=== PATIENT | male | born 1935 | race Caucasian/White ===

== ENCOUNTER 2017-07-03 17:35 | Observation (INO) | payer MEDICARE ==
[2017-07-03] MEDS ORDERED: Sodium Chloride 0.9% 1000 ML 1,000 ML IV SCH ×2 (19:00→21:15)
[2017-07-03] MEDS ORDERED: Vancomycin 1GM/ Ns 250ML*** 1 GM/250 ML IVPB IV ONE (19:06)
[2017-07-03 19:10] LABS: BASOPHIL % 0.4 % (0.0-0.4); Basophil (Absolute #) 0.02 (0-0.4); Eosinophil % 0.6 % (0.00-5.0); Eosinophil (Absolute #) 0.03 (0-0.5); Granulocyte Absolute (ANC) 3.46 (1.4-6.9); Granulocytes % 74.2 % (36.0-66.0); Hematocrit 28.1 % (42-50); Hemoglobin 8.7 gm/dl (12.5-18.0); Lymphocyte (Absolute #) 0.79 (1.0-4.6); Lymphocytes % 16.9 % (24.0-44.0); Mean Cell Volume 88.4 fl (78-100); Monocyte (Absolute #) 0.37 (0.0-1.3); Monocytes % 7.9 % (0.0-12.0); Platelet Count 350 K/mm3 (150-450); Red Blood Count 3.18 M/mm3 (4.1-5.6); Red Cell Distribution Width 13.9 % (11.5-14.0); White Blood Count 4.7 K/mm3 (4.0-10.5)
[2017-07-03] MEDS ORDERED: Vancomycin 1GM/ Ns 250ML*** 250 ML IV ONE (19:13)
[2017-07-03 19:20] LABS: ALBUMIN 3.4 g/dL (3.4-5.0); ANION GAP 9.7 MEQ/L (5-15); BILIRUBIN,TOTAL 0.2 mg/dL (0.2-1.0); Calcium 8.9 mg/dL (8.5-10.1); Carbon Dioxide 31.3 mEq/L (21-32); Creatinine 1 1.73 mg/dl (0.55-1.30); Mean Corpuscular Hemoglobin 27.3 pg (26-32); Potassium 4.1 mEq/L (3.5-5.1)
[2017-07-03 19:26] LABS: INR 1.03 (0.8-3.0)
[2017-07-03] MEDS ORDERED: Sodium Chloride 0.9% 1000 ML 1,000 ML ONE (19:42)
[2017-07-03] MEDS ORDERED: Adacel Vial IM ONE ×2 (20:34→20:46)
--- NOTE | 2017-07-03 20:42 | ERPHSYRPT ---
- History of Present Illness Time Seen by Provider: 07/03/17 18:50 Source: patient, family Exam Limitations: clinical condition Patient Subjective Stated Complaint: Pt states "My legs have been getting worse for the past 3 weeks." Triage Nursing Assessment: Pt alert and oriented X 3, skin pwd. Pt ambulates with much assistance. Pt legs have +2 pitting edema, left leg worse than right. Physician History: PATIENT WITH A HISTORY OF DEPENDENT EDEMA IN LOWER LEGS COMPLAIN OF LEFT LEG SWELLING X 3 WEEKS, ASSOCIATED WITH REDNESS. DENIES FEVER OR CHILLS. PATIENT COMPLAINS OF PAIN IN LEFT FINN AND CALF. DENIES CHEST PAIN OR DYSPNEA. Method of Injury: other (DENIES TRAUMA OR INJURY) Occurred: days ago Quality: constant, throbbing Severity of Pain-Max: moderate Severity of Pain-Current: moderate Lower Extremities Pain: leg: left Modifying Factors: Improves With: movement Associated Symptoms: other (PAIN UPON WEIGHT BEARING ) Allergies/Adverse Reactions: No Known Drug Allergies Allergy (Unverified 07/30/14 03:47) Home Medications: Furosemide [Lasix] 40 mg PO BID 07/03/17 [History] Sulfamethoxazole/Trimethoprim [Bactrim 400-80 mg Tablet] 1 each PO DAILY [History] Hx Tetanus, Diphtheria Vaccination/Date Given: Yes Hx Influenza Vaccination/Date Given: Yes Hx Pneumococcal Vaccination/Date Given: No Immunizations Up to Date: Yes - Review of Systems Constitutional: No Fever, No Chills Eyes: No Symptoms Ears, Nose, & Throat: No Symptoms Respiratory: No Cough, No Dyspnea Cardiac: No Symptoms, No Chest Pain, No Edema, No Syncope Abdominal/Gastrointestinal: No Symptoms, No Abdominal Pain, No Nausea, No Vomiting, No Diarrhea Genitourinary Symptoms: No Symptoms, No Dysuria Musculoskeletal: Other (LEG SWELLING), No Back Pain, No Neck Pain Skin: No Rash Neurological: No Dizziness, No Focal Weakness, No Sensory Changes Psychological: No Symptoms Endocrine: No Symptoms All Other Systems: Reviewed and Negative - Past Medical History Pertinent Past Medical History: Yes Neurological History: No Pertinent History ENT History: No Pertinent History Cardiac History: Hypertension Endocrine Medical History: Diabetes Type II Musculoskeletal History: No Pertinent History GI Medical History: No Pertinent History History: No Pertinent History Psycho-Social History: No Pertinent History Male Reproductive Disorders: No Pertinent History - Past Surgical History Past Surgical History: No - Social History Smoking Status: Never smoker Exposure to second hand smoke: Yes Drug Use: none Patient Lives Alone: Yes - Nursing Vital Signs Nursing Vital Signs: Initial Vital Signs Temperature 98.5 F 07/03/17 18:36 Pulse Rate 92 H 07/03/17 18:36 Respiratory Rate 18 07/03/17 18:36 Blood Pressure 142/75 07/03/17 18:36 O2 Sat by Pulse Oximetry 100 07/03/17 18:36 Pain Scale Pain Intensity 2 - Physical Exam General Appearance: alert Eyes, Ears, Nose, Throat Exam: moist mucous membranes Neck Exam: non-tender, supple Cardiovascular/Respiratory Exam: chest non-tender, normal breath sounds, regular rate/rhythm, no respiratory distress Gastrointestinal/Abdominal Exam: non-tender, guarding Back Exam: normal inspection, No vertebral tenderness Hips Exam: bilateral: soft tissue tenderness (ERYTHRMA AND WARMTH LEFT FINN AND CALF) Legs Exam: left leg: bone tenderness, bilateral leg: swelling (CIRCUMFERENCE RIGHT LEG 41CM, LEFT LEG 44CM) Foot Exam: bilateral foot: other (PEDIS PULSES 2+) Neuro/Tendon Exam: normal sensation, normal motor functions Mental Status Exam: alert, oriented x 3, cooperative Skin Exam: normal color, warm, dry SpO2 Interpretation: normal SpO2: 98 Oxygen Delivery: Room Air - Course EKG Interpreted by Me: RATE, Sinus Rhythm, NORMAL AXIS, Non-specific ST Changes - Radiology Exams Chest X-ray Interpretation: Interpreted by me (COPD, FLAT DIAHRAMS, NO INFILTRATES) - Radiology Ultrasound Exam Left Venous Lower Extremity Ultrasound: discussed w/radiologist (NO EVIDENCE OF DVT) Ordered Tests: Active Orders 24 hr Category Date Time Status EKG-ER Only STAT Care 07/03/17 19:05 Active IV Insertion STAT Care 07/03/17 18:57 Active CHEST 1 VIEW (PORTABLE) Stat Exams 07/03/17 19:05 Taken VENOUS BILATERAL EXTREMITY [US] Stat Exams 07/03/17 20:02 Taken BLOOD CULTURE Stat Lab 07/03/17 19:35 Received CBC W DIFF Stat Lab 07/03/17 19:00 Completed CMP Stat Lab 07/03/17 19:00 Completed MAGNESIUM Stat Lab 07/03/17 19:05 Completed PT INR [PROTIME WITH INR] Stat Lab 07/03/17 19:00 Completed TROPONIN Q3H Lab 07/03/17 19:15 Completed TROPONIN Q3H Lab 07/03/17 22:15 Ordered TROPONIN Q3H Lab 07/04/17 01:15 Ordered TROPONIN Q3H Lab 07/04/17 04:15 Ordered TROPONIN Q3H Lab 07/04/17 07:15 Ordered Medication Summary Generic Name Dose Route Start Last Admin Trade Name Freq PRN Reason Stop Dose Admin Sodium Chloride 1,000 mls @ 50 mls/hr 07/03/17 19:00 07/03/17 19:45 Sodium Chloride 0.9% 1000 Ml IV 08/02/17 18:59 50 mls/hr .Q20H DONNA Administration Discontinued Medications Generic Name Dose Route Start Last Admin Trade Name Freq PRN Reason Stop Dose Admin Diphtheria/Tetanus/Acell Pertussis 0.5 ml 07/03/17 20:34 07/03/17 20:49 Adacel Vial IM 07/03/17 20:35 0.5 ml .ONCE ONE Administration Diphtheria/Tetanus/Acell Pertussis Confirm 07/03/17 20:46 Adacel Vial Administered 07/03/17 20:47 Dose 0.5 ml IM .STK-MED ONE Vancomycin HCl 1 gm in 250 mls @ 167 mls/hr 07/03/17 19:06 07/03/17 19:45 Vancomycin 1gm/ Ns 250ml IV 07/03/17 20:35 167 mls/hr STAT ONE Administration Vancomycin HCl Confirm 07/03/17 19:13 Vancomycin 1gm/ Ns 250ml Administered 07/03/17 19:14 Dose 250 mls @ ud IV .STK-MED ONE Lab/Rad Data: Laboratory Result Diagrams 07/03/17 19:00 07/03/17 19:00 Laboratory Results 07/03/17 07/03/17 07/03/17 Range/Units 19:15 19:05 19:00 WBC (4.0-10.5) K/mm3 RBC (4.1-5.6) M/mm3 Hgb (12.5-18.0) gm/dl Hct (42-50) % MCV (78-100) fl MCH (26-32) pg MCHC (32-36) g/dl RDW (11.5-14.0) % Plt Count (150-450) K/mm3 MPV (6-9.5) fl Gran % (36.0-66.0) % Lymphocytes % (24.0-44.0) % Monocytes % (0.0-12.0) % Eosinophils % (0.00-5.0) % Basophils % (0.0-0.4) % Basophils # (0-0.4) INR 1.03 (0.8-3.0) Sodium (136-145) mEq/L Potassium (3.5-5.1) mEq/L Chloride (98-107) mEq/L Carbon Dioxide (21-32) mEq/L Anion Gap (5-15) MEQ/L BUN (9-20) mg/dL Creatinine (0.55-1.30) mg/dl Estimated GFR ML/MIN Glucose (70-110) MG/DL Calcium (8.5-10.1) mg/dL Magnesium 2.1 (1.8-2.4) mg/dL Total Bilirubin (0.2-1.0) mg/dL AST (15-37) U/L ALT (12-78) U/L Alkaline Phosphatase (46-116) U/L Troponin I 0.018 (0.000-0.056) ng/ml Serum Total Protein (6.4-8.2) gm/dL Albumin (3.4-5.0) g/dL 07/03/17 07/03/17 Range/Units 19:00 19:00 WBC 4.7 (4.0-10.5) K/mm3 RBC 3.18 L (4.1-5.6) M/mm3 Hgb 8.7 L (12.5-18.0) gm/dl Hct 28.1 L (42-50) % MCV 88.4 (78-100) fl MCH 27.3 (26-32) pg MCHC 31.0 L (32-36) g/dl RDW 13.9 (11.5-14.0) % Plt Count 350 (150-450) K/mm3 MPV 9.0 (6-9.5) fl Gran % 74.2 H (36.0-66.0) % Lymphocytes % 16.9 L (24.0-44.0) % Monocytes % 7.9 (0.0-12.0) % Eosinophils % 0.6 (0.00-5.0) % Basophils % 0.4 (0.0-0.4) % Basophils # 0.02 (0-0.4) INR (0.8-3.0) Sodium 137 (136-145) mEq/L Potassium 4.1 (3.5-5.1) mEq/L Chloride 100 (98-107) mEq/L Carbon Dioxide 31.3 (21-32) mEq/L Anion Gap 9.7 (5-15) MEQ/L BUN 27 H (9-20) mg/dL Creatinine 1.73 H (0.55-1.30) mg/dl Estimated GFR 40 ML/MIN Glucose 163 H (70-110) MG/DL Calcium 8.9 (8.5-10.1) mg/dL Magnesium (1.8-2.4) mg/dL Total Bilirubin 0.20 (0.2-1.0) mg/dL AST 29 (15-37) U/L ALT 20 (12-78) U/L Alkaline Phosphatase 166 H (46-116) U/L Troponin I (0.000-0.056) ng/ml Serum Total Protein 8.0 (6.4-8.2) gm/dL Albumin 3.4 (3.4-5.0) g/dL - Progress Progress Note: 07/03/17 20:46 ADMINISTERED TETNUS ADACEL 0.5ML IM, IV NORMAL SALINE 50ML/HR, VANCOMYCIN 1GM AFTER 2 SETS OF BLOOD CULTURE OBTAINED Discussed with : Mau (DISCUSSED WITH DR ZHOU AT 2037 FOR ADMISSION) - Departure Time of Disposition: 21:15 Departure Disposition: Observation Clinical Impression: CELLULITUS LEFT LEG Condition: Stable Critical Care Time: No Referrals: SPARKLE ZHOU [Primary Care Provider] -
[2017-07-03] MEDS ORDERED: Zofran 4 MG/2 ML VIAL IV PRN (21:10)
[2017-07-03] MEDS ORDERED: TYLENOL 325 MG PO PRN (21:10)
[2017-07-03] MEDS ORDERED: VANCOCIN 1 GM VIAL*** 1 GM in Sodium Chloride 0.9% 250 ML 250 ML IV SCH (21:30)
--- NOTE | 2017-07-04 08:35 | XRAY ---
Indication: Bilateral leg pain and swelling. Two-dimensional sonogram and color Doppler imaging of the major venous vessels of the left and right leg was performed. Comparison: None No thrombus seen in the examined deep venous vessels of the left and right leg including greater saphenous veins. Veins demonstrate normal compressibility. Venous waveforms are normal with and without augmentation. Incidental mild bilateral lower leg soft tissue edema without focal fluid collection. Impression: Left and right legs negative for DVT. Comment: Preliminary report was given.
--- NOTE | 2017-07-04 08:40 | XRAY ---
Indication: Cough. Comparison: July 30, 2014. Portable chest does not completely include the left lung base. Remaining lungs hyperinflated without focal infiltrate, consolidation, or large effusion. Heart is not enlarged. Bony thorax intact again with mild osteopenia and degenerative changes. Impression: Nonacute hyperinflated limited chest again with chronic features.
[2017-07-04] MEDS ORDERED: ULTRAM 50 MG PO PRN (08:58)
[2017-07-04] MEDS ORDERED: Lasix 40 MG PO SCH (10:00)
[2017-07-04] MEDS ORDERED: ENOXAPARIN SODIUM SQ SCH (10:00)
[2017-07-04] MEDS ORDERED: HEPARIN-NS 1,000 UNITS/500 ML IV ONE (10:00)
--- NOTE | 2017-07-04 10:58 | HP ---
CHIEF COMPLAINT: Leg swelling. HISTORY OF PRESENT ILLNESS: The patient is an 82 year-old white male patient who presented to emergency room by family with complaints of increasing swelling in the legs over the past three weeks. The legs have been noted to be red and warm. The patient has been on Bactrim for chronic cellulitis of the lower extremities but this has gotten worse and the patient is felt the need to be admitted to the hospital. PAST MEDICAL HISTORY: Otherwise significant for diabetes mellitus type 2. MEDICATIONS: The patient is currently on Lasix 40 mg b.i.d. and Bactrim DS twice a day. ALLERGIES: NKDA. PHYSICAL EXAMINATION: Revealed a well-nourished, well-developed 82 year-old white male patient currently in no obvious distress. His most recent vital signs showed temperature 98.2F, pulse 79, respiratory rate 20 and blood pressure 116/55. O2 saturation 97% on room air. HEENT: Normocephalic, atraumatic. Pupils equal round reactive to light. Extraocular movements intact. Oropharynx is pink and moist. NECK: Supple without lymphadenopathy, thyromegaly or JVD. CHEST: Clear to auscultation with good air movement bilaterally. HEART: With a significant holosystolic murmur noted. ABDOMEN: Soft, nontender, nondistended without hepatosplenomegaly or masses. EXTREMITIES: Revealed lower extremity edema extending two-thirds upwards of the bashir. The patient does have redness and particularly swelling laterally over the left leg. It is somewhat warm and tender. There are superficial ulcerated areas and also apparent the toes have onychomycosis of the nails. NEUROLOGIC: The patient is alert and oriented x3 with no focal deficits. LAB DATA AND TESTS: Showed troponin 0.022. CBC showed hemoglobin 8.7, white blood cell count 4.7, PLT count 350,000. Glucose 163 nonfasting, BUN 27, creatinine 1.73. Electrolytes were normal. Liver enzymes were normal. Magnesium normal. International normalized ratio 1.03. He had a venous Doppler this a.m. of the lower extremities which were negative for deep venous thrombosis. His EKG essentially shows a normal sinus rhythm, borderline left axis deviation but good R-wave progression across the precordial leads. ASSESSMENT: A patient with chronic lymphedema with cellulitis. He has been admitted to the hospital for IV Vancomycin treatment having failed outpatient therapy. We will encourage the patient to keep the legs elevated. He is somewhat confused and noncompliant. He has already pulled out an IV once. His family has been described the issues at hand and we will attempt to ask the pharmacy on dosage of Vancomycin if he is able to take it once daily we may bring him back in for outpatient treatment of Vancomycin versus the potential for going to rehab for further evaluation and management. We will have PT evaluate the patient too for compression stockings and wound care management.
--- NOTE | 2017-07-04 11:00 | XRAY ---
Indication: Long-term IV therapy for left leg cellulitis. Informed consent obtained. Patient was placed on the fluoroscopic table in a supine position. Initial sonographic imaging of the right upper extremity was performed for localization of patent veins. The right upper extremity was then prepped and draped in sterile fashion. Tourniquet applied. 1% lidocaine plain used for local anesthesia. Using ultrasound guidance and a micropuncture needle, a basilic vein above the elbow was successfully percutaneously cannulized. A floppy tip 0.018 guidewire inserted. Tourniquet released. Needle was exchanged for a 5 Portuguese dilator peel-away sheath catheter. Ultimately a 5 Portuguese double-lumen PICC line was inserted over a longer 0.018 guidewire with the tip positioned in the distal SVC using fluoroscopic guidance. Guidewire removed. Both ports flushed with heparinized saline. Catheter was secured. Postoperative instructions and orders given. Patient discharged in good condition. Impression: Technically successful right upper extremity PICC line placement using ultrasound and fluoroscopic guidance. No immediate complications. Approximately 2 cc blood loss. Approximately 0.1 minute of fluoroscopy used. Catheter length is 42 cm.
--- NOTE | 2017-07-04 11:03 | XRAY ---
Indication: Ultrasound guidance for PICC line placement. Initial sonographic imaging of the right upper extremity was performed for localization of patent veins. A patent basilic vein identified above the elbow. Ultrasound guidance was then used for PICC line insertion. Full PICC line insertion is reported separately.
[2017-07-04] MEDS: KEFLEX 500 MG PO SCH ×4 (11:17→21:51)
[2017-07-04 16:27] VITALS: BP 132/80; PULSE 90; O2SAT 20
[2017-07-04] MEDS ORDERED: VANCOCIN 1 GM VIAL*** 1 GM in Sodium Chloride 0.9% 250 ML 250 ML IV SCH (20:00)
[2017-07-05] MEDS ORDERED: TROUGH DRUG LEVELS IJ ONE (19:30)
--- NOTE | 2017-07-07 11:39 | ECHO ---
DATE OF PROCEDURE: 07/04/2017 CLINICAL INFORMATION: correction Vancomycin infusion. The M-mode 2D, and Doppler echocardiogram including color flow Doppler shows mild aortic stenosis with a peak gradient of 24 mm of Mercury and a mean gradient at 15 mm of Mercury. The aortic valve area was calculated to be 1.2 sq/cm. There is aortic valvular sclerosis and calcification. The left ventricle was normal with a dimension of 4.4 cm. The septal wall thickness is at the upper limits of normal being 1.1 cm. The left ventricular posterior wall thickness is at the upper limits of normal being 1.1 cm. The contractility of the left ventricle was normal and ejection fraction was 53%. A left ventricular thrombus cannot be ruled out. The right ventricle is not well visualized. The left atrium is mildly dilated with a dimension of 4.5 cm. The interatrial septum is intact. The right ventricle is mildly dilated. There is mild mitral regurgitation present. There is mild to moderate tricuspid regurgitation. The right ventricular systolic pressure is mildly elevated at 32 mm of Mercury. The pulmonic valve is not well visualized. The aortic root is normal with a dimension of 3.5 cm. There is no pericardial effusion. IMPRESSION: 1) MILD TO MODERATE CALCIFIC AORTIC STENOSIS. 2) NORMAL CONTRACTILITY OF THE LEFT VENTRICLE. 3) MILD MITRAL REGURGITATION. 4) MILD TO MODERATE TRICUSPID REGURGITATION. 5) MILD PULMONARY HYPERTENSION.
== END 2017-07-04 21:55 | disposition home or self-care (01) ==
LOC: ED 17:35 → MED SURG 21:56
PROVIDERS: ADMIT Family Medicine; ATTEND Family Medicine
DX: L03.116 Cellulitis of left lower limb (principal); L03.115 Cellulitis of right lower limb; I89.0 Lymphedema, not elsewhere classified; L97.829 Non-pressure chronic ulcer of other part of left lower leg with unspecified severity; L97.819 Non-pressure chronic ulcer of other part of right lower leg with unspecified severity; E11.9 Type 2 diabetes mellitus without complications; M79.662 Pain in left lower leg; I10 Essential (primary) hypertension; Z23 Encounter for immunization; A35 Other tetanus
CPT/HCPCS: 36000; 36415; 36569; 71045; 76937; 77001; 80053; 82962; 83735; 83880; 84484; 85025; 85610; 87040; 90471; 90715; 93005; 93306; 93970; 96360; 96365; 96372; 99285; C1769; G0378; J1642; J1650; J3370; A9270-GY

== ENCOUNTER 2017-11-06 22:51 | Emergency (ER) | payer MEDICARE ==
[2017-11-06 23:21] VITALS: PULSE 74
--- NOTE | 2017-11-06 23:41 | ERPHSYRPT ---
- History of Present Illness Time Seen by Provider: 11/06/17 23:36 Source: patient, family Exam Limitations: no limitations Patient Subjective Stated Complaint: pt's son states that pt has a cut on h is leg and is unsure how he got it. states he was working in the yard today. Triage Nursing Assessment: pt answers questions approp. pt ambulated from wheelchair to stretcher, slow unsteady gait with cane noted. respirations nonlabored. laceration noted to lateral lt lower leg, 8x0.5 cm with no bleeding at this time. Physician History: The patient is an 82-year-old male with family member complaining that he "bumped into something in the garage", causing a skin tear/laceration to his lower left leg. This occurred about 2 hours ago. His last tetanus vaccination was 2 years ago. His past medical history is significant for edema. Timing/Duration: today, hour(s) (2) Severity: mild Location: extremities (left lower leg) Possible Causes: no cause identified Associated Symptoms: denies symptoms Allergies/Adverse Reactions: No Known Drug Allergies Allergy (Verified 09/07/17 11:34) Home Medications: Furosemide [Lasix] 40 mg PO BID 07/03/17 [History] Potassium Chloride 20 Meq [Klor-Con 20 MEQ] 20 meq PO DAILY 09/07/17 [History] Hx Tetanus, Diphtheria Vaccination/Date Given: Yes (2015) Hx Influenza Vaccination/Date Given: Yes Hx Pneumococcal Vaccination/Date Given: No Immunizations Up to Date: Yes - Review of Systems Constitutional: No Fever, No Chills Eyes: No Symptoms Ears, Nose, & Throat: No Symptoms Respiratory: No Cough, No Dyspnea Cardiac: No Chest Pain, No Edema, No Syncope Abdominal/Gastrointestinal: No Abdominal Pain, No Nausea, No Vomiting, No Diarrhea Genitourinary Symptoms: No Dysuria Musculoskeletal: No Back Pain, No Neck Pain Skin: Other (skin tear/laceration) Neurological: No Dizziness, No Focal Weakness, No Sensory Changes Psychological: No Symptoms Endocrine: No Symptoms Hematologic/Lymphatic: No Symptoms Immunological/Allergic: No Symptoms All Other Systems: Reviewed and Negative - Past Medical History Pertinent Past Medical History: Yes Neurological History: Dementia ENT History: No Pertinent History Cardiac History: Other Respiratory History: No Pertinent History Endocrine Medical History: Diabetes Type II Musculoskeletal History: Arthritis GI Medical History: No Pertinent History History: No Pertinent History Psycho-Social History: No Pertinent History Male Reproductive Disorders: No Pertinent History Other Medical History: MITRAL VALVE PROLAPSE - Past Surgical History Past Surgical History: No Neuro Surgical History: No Pertinent History Cardiac: No Pertinent History Respiratory: No Pertinent History Gastrointestinal: No Pertinent History Genitourinary: No Pertinent History Musculoskeletal: No Pertinent History Male Surgical History: No Pertinent History - Social History Smoking Status: Never smoker Exposure to second hand smoke: Yes Drug Use: none Patient Lives Alone: No - Nursing Vital Signs Nursing Vital Signs: Initial Vital Signs Temperature 98.4 F 11/06/17 23:07 Pulse Rate 74 11/06/17 23:07 Respiratory Rate 18 11/06/17 23:07 Blood Pressure 152/69 11/06/17 23:07 O2 Sat by Pulse Oximetry 97 11/06/17 23:07 Pain Scale Pain Intensity 0 - Physical Exam General Appearance: no apparent distress, alert Eye Exam: PERRL/EOMI, eyes nml inspection Ears, Nose, Throat Exam: normal ENT inspection, pharynx normal, moist mucous membranes Neck Exam: normal inspection, non-tender, supple, full range of motion Respiratory Exam: normal breath sounds, lungs clear, No respiratory distress Cardiovascular Exam: regular rate/rhythm, normal heart sounds Gastrointestinal/Abdomen Exam: soft, mass, No tenderness Rectal Exam: not done Back Exam: normal inspection, normal range of motion, No CVA tenderness, No vertebral tenderness Extremity Exam: normal inspection, normal range of motion Neurologic Exam: alert, oriented x 3, cooperative, normal mood/affect, sensation nml, No motor deficits Skin Exam: laceration (skin tear of 8 cm to anterior left distal leg.) SpO2 Interpretation: normal SpO2: 97 Oxygen Delivery: Room Air - Progress Progress: improved Progress Note: 11/06/17 23:38 pt declines sutures and requests steri-strips. Counseled pt/family regarding: diagnosis - Departure Time of Disposition: 23:39 Departure Disposition: Home Clinical Impression: Skin tear Condition: Stable Critical Care Time: No Referrals: SPARKLE ZHOU [Primary Care Provider] - Additional Instructions: You have a skin tear to your left lower leg that was closed with Steri-Strips. Take Keflex 500 mg 4 times a day for 10 days. Allow the Steri-Strips to peel off on their own accord. Follow-up in 2-3 days with your primary care provider. Prescriptions: Cephalexin Mh 500 mg [Keflex 500 mg] 1 cap PO QID #40 capsule
[2017-11-07 00:10] VITALS: BP 144/74; O2SAT 98
== END 2017-11-07 00:15 | disposition home or self-care (01) ==
LOC: ED 22:51
DX: S81.812A Laceration without foreign body, left lower leg, initial encounter (principal); W22.8XXA Striking against or struck by other objects, initial encounter; Y92.008 Other place in unspecified non-institutional (private) residence as the place of occurrence of the external cause
CPT/HCPCS: 99283

== ENCOUNTER 2018-09-03 10:03 | Observation (INO) | payer MEDICARE ==
--- NOTE | 2018-09-03 10:39 | ERPHSYRPT ---
- History of Present Illness Time Seen by Provider: 09/03/18 10:15 Source: patient Exam Limitations: clinical condition Patient Subjective Stated Complaint: pt arrives per EMS, EMS staff reports family at the scene stated pt left face was extremely swollen yesterday. pt has no complaints at this time. pt is unsure why he is here. pt reports hx of skin cancer to the left lower arm, pt is not being treated for the skin cancer. 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 edema noted to the area between the eyebrows, left side of the pt face is not noted to be swollen, skin is intact. healing scab noted to the top of the head, no bleeding at this time. Physician History: PATIENT WITH A HISTORY OF CONGESTIVE HEART FAILURE, HAS BEEN HAVING FREQUENT FALLS SUSTAINED ABRASIONS TO SCALP. HAS A HISTORY OF SKIN CARCINOMA, RECEIVING RADIATION THERAPY AND HAS LEFT FOREARM SWELLING, OPEN WOUNDS DRAINING WITH SURROUNDING REDNESS. DENIES FEVER OR CHILLS. FAMILY MEMBER NOTICE LEFT SIDED FACIAL SWELLING YESTERDAY WHICH HAS RESOLVED TODAY. PATIENT FELL AND STRUCK HEAD PAST FEW DAYS, UNSURE OF LOSS OF CONSCIOUSNESS, DENIES HEADACHE. Timing/Duration: day(s) Severity: mild Associated Symptoms: other (OPEN WOUNDS LEFT FOREARM) Allergies/Adverse Reactions: No Known Drug Allergies Allergy (Verified 09/07/17 11:34) Home Medications: Furosemide [Lasix] 40 mg PO BID 07/03/17 [History] Hydrocodone/APAP 5-325 Tab^^^ [[place] 5-325 Tablet^^^] 1 each PO DAILY MDD 6 [History] Potassium Chloride 10 Meq Tab* [Klor Con 10 MEQ] 10 meq PO DAILY 07/26/18 [ History] Hx Tetanus, Diphtheria Vaccination/Date Given: Yes Hx Influenza Vaccination/Date Given: Yes Hx Pneumococcal Vaccination/Date Given: Yes Immunizations Up to Date: Yes - Review of Systems Constitutional: Other ( SCABS OVER ANTERIOR AND OCCIPITAL SCALP), No Fever, No Chills Eyes: No Symptoms Ears, Nose, & Throat: No Symptoms Respiratory: No Symptoms, No Cough, No Dyspnea Cardiac: No Symptoms, No Chest Pain, No Edema, No Syncope Abdominal/Gastrointestinal: No Symptoms, No Abdominal Pain, No Nausea, No Vomiting, No Diarrhea Genitourinary Symptoms: No Symptoms, No Dysuria Musculoskeletal: No Symptoms, No Back Pain, No Neck Pain Skin: No Symptoms, No Rash Neurological: No Symptoms, No Dizziness, No Focal Weakness, No Sensory Changes Psychological: No Symptoms Endocrine: No Symptoms All Other Systems: Reviewed and Negative - Past Medical History Pertinent Past Medical History: Yes Neurological History: Dementia ENT History: No Pertinent History Cardiac History: Congestive Heart Failure, Other Respiratory History: No Pertinent History Endocrine Medical History: Diabetes Type II, Hypothyroidism Musculoskeletal History: Arthritis GI Medical History: No Pertinent History History: No Pertinent History Psycho-Social History: No Pertinent History Male Reproductive Disorders: No Pertinent History Other Medical History: MITRAL VALVE PROLAPSE skin cancer - Past Surgical History Past Surgical History: Yes Neuro Surgical History: No Pertinent History Cardiac: No Pertinent History Respiratory: No Pertinent History Gastrointestinal: No Pertinent History Genitourinary: No Pertinent History Musculoskeletal: Orthopedic Surgery Male Surgical History: No Pertinent History Other Surgical History: neck was broken he has rods in his neck. - Social History Smoking Status: Never smoker Exposure to second hand smoke: Yes Drug Use: none Patient Lives Alone: No - Nursing Vital Signs Nursing Vital Signs: Initial Vital Signs Temperature 97.9 F 09/03/18 10:04 Pulse Rate 88 09/03/18 10:04 Respiratory Rate 22 09/03/18 10:04 Blood Pressure 153/85 09/03/18 10:04 O2 Sat by Pulse Oximetry 98 09/03/18 10:04 Pain Scale Pain Intensity 0 - Physical Exam General Appearance: no apparent distress, alert Eye Exam: PERRL/EOMI, eyes nml inspection Ears, Nose, Throat Exam: normal ENT inspection, TMs normal, pharynx normal, moist mucous membranes Neck Exam: normal inspection, non-tender, supple, full range of motion Respiratory Exam: normal breath sounds, lungs clear, No respiratory distress Cardiovascular Exam: regular rate/rhythm, normal heart sounds, normal peripheral pulses Gastrointestinal/Abdomen Exam: soft, normal bowel sounds, No tenderness, No mass Back Exam: normal inspection, normal range of motion, No CVA tenderness, No vertebral tenderness Extremity Exam: pedal edema (BILATERAL PEDIS EDEMA 3+ PITTING ), swelling ( ANGIOEDEMA LEFT FOREARM, OPEN ULCERATION 2CM X 2CM 3 WOUNDS SURROUNDING ERYTHEMA , LEFT RADIAL PULSE 2+) Neurologic Exam: alert, oriented x 3, cooperative, normal mood/affect, nml cerebellar function, nml station & gait, sensation nml, No motor deficits Skin Exam: normal color, warm, dry, No rash Lymphatic Exam: No adenopathy SpO2: 98 - Course EKG Interpreted by Me: RATE, Sinus Rhythm, NORMAL AXIS (RATE 83) - Radiology Exams Chest X-ray Interpretation: Discussed w/ radiologist, No Infiltrates - CT Exams Head CT Interpretation: Discussed w/radiologist, No/Intracranial Hemorrhag Ordered Tests: Active Orders 24 hr Category Date Time Status Up With Assistance ROUTINE Activity 09/03/18 12:40 Ordered Call Admit Doctor for Orders ON ADMISSION Care 09/03/18 12:41 Ordered Code Status Order ROUTINE Care 09/03/18 12:40 Ordered EKG-ER Only STAT Care 09/03/18 10:31 Active IV Care Q6H Care 09/03/18 12:40 Ordered IV Insertion STAT Care 09/03/18 10:31 Active Neuro Checks STAT Care 09/03/18 12:[address] in Observation ROUTINE Care 09/03/18 12:40 Ordered Vital Signs Q4H Care 09/03/18 12:40 Ordered Wound Care STAT Care 09/03/18 12:44 Ordered Regular Diet Diet 09/03/18 Dinner Ordered CHEST 1 VIEW (PORTABLE) Stat Exams 09/03/18 10:32 Completed HEAD WITHOUT CONTRAST [CT] Stat Exams 09/03/18 10:32 Completed BLOOD CULTURE Stat Lab 09/03/18 11:10 Received CBC W DIFF Stat Lab 09/03/18 11:10 Completed CMP Stat Lab 09/03/18 11:10 Completed CULTURE,WOUND Stat Lab 09/03/18 10:34 Uncollected PROTIME WITH INR Stat Lab 09/03/18 11:10 Completed TROPONIN Q3H Lab 09/03/18 11:10 Completed TROPONIN Q3H Lab 09/03/18 13:45 Ordered TROPONIN Q3H Lab 09/03/18 16:45 Ordered TROPONIN Q3H Lab 09/03/18 19:45 Ordered TROPONIN Q3H Lab 09/03/18 22:45 Ordered UA W/RFX UR CULTURE Stat Lab 09/03/18 11:37 Uncollected Transfer Order Routine Transfer 09/03/18 Ordered Medication Summary Generic Name Dose Route Start Last Admin Trade Name Trice PRN Reason Stop Dose Admin Sodium Chloride 1,000 mls @ 20 mls/hr 09/03/18 11:00 09/03/18 12:05 Sodium Chloride 0.9% 1000 Ml IV 10/03/18 10:59 20 mls/hr .Q24H DONNA Administration Vancomycin HCl 1 gm in 250 mls @ 167 mls/hr 09/03/18 11:46 09/03/18 12:05 Vancomycin 1gm/ Ns 250ml IV 09/03/18 13:15 167 mls/hr STAT ONE Administration Discontinued Medications Generic Name Dose Route Start Last Admin Trade Name Trice PRN Reason Stop Dose Admin Vancomycin HCl Confirm 09/03/18 12:03 Vancomycin 1gm/ Ns 250ml Administered 09/03/18 12:04 Dose 250 mls @ ud IV .STK-MED ONE Lab/Rad Data: Laboratory Result Diagrams 09/03/18 11:10 09/03/18 11:10 Laboratory Results 09/03/18 09/03/18 09/03/18 Range/Units 11:10 11:10 11:10 WBC (4.0-10.5) K/mm3 RBC (4.1-5.6) M/mm3 Hgb (12.5-18.0) gm/dl Hct (42-50) % MCV (78-100) fl MCH (26-32) pg MCHC (32-36) g/dl RDW (11.5-14.0) % Plt Count (150-450) K/mm3 MPV (6-9.5) fl Gran % (36.0-66.0) % Eos # (Auto) (0-0.5) Absolute Lymphs (auto) (1.0-4.6) Absolute Monos (auto) (0.0-1.3) Lymphocytes % (24.0-44.0) % Monocytes % (0.0-12.0) % Eosinophils % (0.00-5.0) % Basophils % (0.0-0.4) % Absolute Granulocytes (1.4-6.9) Basophils # (0-0.4) PT 12.9 H (8.83-12.87) SECONDS INR 1.11 (0.8-3.0) Sodium 140 (137-145) mmol/L Potassium 3.9 (3.5-5.1) mmol/L Chloride 99 (98-107) mmol/L Carbon Dioxide 29 (22-30) mmol/L Anion Gap 15.8 H (5-15) MEQ/L BUN 23 H (9-20) mg/dL Creatinine 1.02 (0.66-1.25) mg/dL Estimated GFR > 60.0 ML/MIN Glucose 231 H (74-106) mg/dL Calcium 8.9 (8.4-10.2) mg/dL Total Bilirubin 0.60 (0.2-1.3) mg/dL AST 16 L (17-59) U/L ALT 10 (0-50) U/L Alkaline Phosphatase 142 H (38-126) U/L Troponin I < 0.012 (0.000-0.034) ng/mL Serum Total Protein 8.2 (6.3-8.2) g/dL Albumin 4.0 (3.5-5.0) g/dL 09/03/18 Range/Units 11:10 WBC 6.3 (4.0-10.5) K/mm3 RBC 3.84 L (4.1-5.6) M/mm3 Hgb 9.3 L (12.5-18.0) gm/dl Hct 30.4 L (42-50) % MCV 79.2 (78-100) fl MCH 24.2 L (26-32) pg MCHC 30.6 L (32-36) g/dl RDW 20.5 H (11.5-14.0) % Plt Count 240 (150-450) K/mm3 MPV 9.8 H (6-9.5) fl Gran % 76.2 H (36.0-66.0) % Eos # (Auto) 0.06 (0-0.5) Absolute Lymphs (auto) 0.79 L (1.0-4.6) Absolute Monos (auto) 0.64 (0.0-1.3) Lymphocytes % 12.5 L (24.0-44.0) % Monocytes % 10.1 (0.0-12.0) % Eosinophils % 1.0 (0.00-5.0) % Basophils % 0.2 (0.0-0.4) % Absolute Granulocytes 4.81 (1.4-6.9) Basophils # 0.01 (0-0.4) PT (8.83-12.87) SECONDS INR (0.8-3.0) Sodium (137-145) mmol/L Potassium (3.5-5.1) mmol/L Chloride (98-107) mmol/L Carbon Dioxide (22-30) mmol/L Anion Gap (5-15) MEQ/L BUN (9-20) mg/dL Creatinine (0.66-1.25) mg/dL Estimated GFR ML/MIN Glucose (74-106) mg/dL Calcium (8.4-10.2) mg/dL Total Bilirubin (0.2-1.3) mg/dL AST (17-59) U/L ALT (0-50) U/L Alkaline Phosphatase (38-126) U/L Troponin I (0.000-0.034) ng/mL Serum Total Protein (6.3-8.2) g/dL Albumin (3.5-5.0) g/dL - Progress Progress Note: 09/03/18 12:23 AFTER 2 SETS OF BLOOD CULTURES IV VANCOMYCIN 1GM IVPB Discussed with Dr.: Nelson (DISCUSSED WITH DR NELSON AT 1210 FOR OBSERVATION) - Departure Time of Disposition: 12:37 Departure Disposition: Observation Clinical Impression: SYNCOPE, LEFT ARM CELLULITIS, DEPENDENT EDEMA Condition: Stable Critical Care Time: No Referrals: SPARKLE ZHOU [Primary Care Provider] -
--- NOTE | 2018-09-03 11:05 | XRAY ---
Indication: Frequent falls. Multiple contiguous axial images obtained through the head without contrast. Comparison: February 02, 2010. Again age-appropriate global atrophy. No acute intracranial hemorrhage, abnormal extra-axial fluid collection, or mass effect. Fourth ventricle is midline without hydrocephalus. Bony calvarium intact. Visualized paranasal sinuses and mastoid air cells are clear. Impression: Normal aging brain. No new or acute intracranial abnormalities. CT DI 26.06
--- NOTE | 2018-09-03 11:07 | XRAY ---
Indication: Cough. Comparison: July 03, 2017. Portable chest again demonstrates minimal right base fibrosis/scarring and tiny right base calcified granuloma. Remaining lungs clear. Heart is not enlarged. Bony thorax intact again with mild osteopenia and degenerative changes. Impression: Stable nonacute chest with chronic features.
[2018-09-03 11:38] LABS: BASOPHIL % 0.2 % (0.0-0.4); Basophil (Absolute #) 0.01 (0-0.4); Eosinophil (Absolute #) 0.06 (0-0.5); Granulocyte Absolute (ANC) 4.81 (1.4-6.9); Granulocytes % 76.2 % (36.0-66.0); Hematocrit 30.4 % (42-50); Hemoglobin 9.3 gm/dl (12.5-18.0); Lymphocyte (Absolute #) 0.79 (1.0-4.6); Lymphocytes % 12.5 % (24.0-44.0); Mean Cell Volume 79.2 fl (78-100); Mean Corpuscular Hemoglobin 24.2 pg (26-32); Mean Corpuscular Hgb Concent. 30.6 g/dl (32-36); Mean Platelet Volume 9.8 fl (6-9.5); Monocyte (Absolute #) 0.64 (0.0-1.3); Monocytes % 10.1 % (0.0-12.0); Platelet Count 240 K/mm3 (150-450); Red Blood Count 3.84 M/mm3 (4.1-5.6); Red Cell Distribution Width 20.5 % (11.5-14.0); White Blood Count 6.3 K/mm3 (4.0-10.5)
[2018-09-03 11:42] LABS: INR 1.11 (0.8-3.0); PROTIME 12.9 SECONDS (8.83-12.87)
[2018-09-03] MEDS ORDERED: Vancomycin 1GM/ Ns 250ML*** 1 GM/250 ML IVPB IV ONE (11:46)
[2018-09-03 11:47] LABS: ALKALINE PHOSPHATASE 142 U/L (38-126); ANION GAP 15.8 MEQ/L (5-15); BLOOD UREA NITROGEN 23 mg/dL (9-20); CHLORIDE 99 mmol/L (98-107); Calcium 8.9 mg/dL (8.4-10.2); Carbon Dioxide 29 mmol/L (22-30); Creatinine 1 1.02 mg/dL (0.66-1.25); Glucose 231 mg/dL (74-106); Potassium 3.9 mmol/L (3.5-5.1); SGOT/AST 16 U/L (17-59); SGPT/ALT 10 U/L (0-50); SODIUM 140 mmol/L (137-145); Total Protein 8.2 g/dL (6.3-8.2)
[2018-09-03] MEDS ORDERED: Vancomycin 1GM/ Ns 250ML*** 250 ML IV ONE (12:03)
[2018-09-03] MEDS: Sodium Chloride 0.9% 1000 ML 1,000 ML IV SCH (12:05)
[2018-09-03] MEDS ORDERED: TYLENOL 325 MG PO PRN (12:40)
[2018-09-03] MEDS ORDERED: Zofran 4 MG/2 ML VIAL IV PRN (12:40)
[2018-09-03] MEDS ORDERED: VANCOCIN 1 GM VIAL*** 1 GM in Sodium Chloride 0.9% 250 ML 250 ML IV SCH (13:00)
[2018-09-03 13:20] LABS: Appearance CLEAR (CLEAR); Bilirubin NEGATIVE (NEGATIVE); Blood SMALL Ery/ul (0-5); Glucose 150 mg/dL (NEGATIVE); Hyaline Casts 0-2 /LPF (0-2); Ketones NEGATIVE (NEGATIVE); Leukocyte Esterase NEGATIVE (NEGATIVE); Nitrite NEGATIVE (NEGATIVE); Protein,Urine Dip NEGATIVE (Negative); RBC 0-2 /HPF (0-2); Specific Gravity 1.009 (1.005-1.025); Urobilinogen NEGATIVE mg/dL (0-1); WBC 0-2 /HPF (0-5)
[2018-09-03] MEDS: Lasix 40 MG PO SCH (16:41)
[2018-09-03 18:37] LABS: Hematocrit 28.6 % (42-50); Hemoglobin 8.7 gm/dl (12.5-18.0); Mean Cell Volume 78.4 fl (78-100); Mean Corpuscular Hemoglobin 23.8 pg (26-32); Mean Corpuscular Hgb Concent. 30.4 g/dl (32-36); Mean Platelet Volume 9.9 fl (6-9.5); Platelet Count 246 K/mm3 (150-450); Red Blood Count 3.65 M/mm3 (4.1-5.6); Red Cell Distribution Width 20.1 % (11.5-14.0); White Blood Count 5.2 K/mm3 (4.0-10.5)
[2018-09-03 19:07] LABS: ANION GAP 12.2 MEQ/L (5-15); BLOOD UREA NITROGEN 18 mg/dL (9-20); CHLORIDE 101 mmol/L (98-107); Calcium 9.2 mg/dL (8.4-10.2); Carbon Dioxide 30 mmol/L (22-30); Creatinine 1 0.83 mg/dL (0.66-1.25); Glucose 166 mg/dL (74-106); PREALBUMIN 9.94 mg/dL (17.6-36.0); Potassium 3.8 mmol/L (3.5-5.1); SODIUM 139 mmol/L (137-145)
--- NOTE | 2018-09-03 20:28 | PCM.HP ---
History of Present Illness - Chief Complaint Chief Complaint: syncope. cellulitis. History of Present Illness: is a 83 year old male pt of Michelle Ordoñez and Dr. León with PMHx lymphedema, DM II, and CHF who was admitted throught he Er with cellulitis. He has a skin ca of L forearm and has been receiving radiation. For the past 1 week it has been ulcerated and oozing. No fever. denies pain. his WBC were 6.4. Troponins neg x 2. head CT normal. CXR neg. He is not oriented for me - thinks he is in [place] and does not know month or year. Says he just "has bags" under his eyes chronically. He has been started on IV vancomycin. - Review of Systems Skin: Cellulitis, Induration All Other Systems: Unable due to dementia Medications & Allergies Home Medications: Home Medication List Furosemide [Lasix] 40 mg PO BID 07/03/17 [History Confirmed 09/03/18] Potassium Chloride 10 Meq Tab* [Klor Con 10 MEQ] 10 meq PO DAILY 07/26/18 [ History Confirmed 09/03/18] Ferrous Sulfate 325 mg PO TID 09/03/18 [History Confirmed 09/03/18] Haloperidol 1 mg [Haldol 1 mg] 0.5 mg PO HS 09/03/18 [History Confirmed ] Levothyroxine Sodium [Synthroid] 50 mcg PO DAILY 09/03/18 [History Confirmed ] Loratadine 10 mg [Claritin 10 mg] 10 mg PO DAILY 09/03/18 [History Confirmed 09/03/18] Metformin HCl 500 mg [Glucophage 500 MG] 500 mg PO BIDWM 09/03/18 [ History Confirmed 09/03/18] Quetiapine Fumarate [Seroquel] 50 mg PO BID 09/03/18 [History Confirmed 09/03/18 ] Sitagliptin Phosphate 50 MG [Januvia 50 MG] 100 mg PO DAILY 09/03/18 [ History Confirmed 09/03/18] Allergies/Adverse Reactions: Allergies Allergy/AdvReac Type Severity Reaction Status Date / Time strawberry Allergy Verified 09/03/18 16:54 - Past Medical History Past Medical History: Yes Neurological History: Dementia ENT History: No Pertinent History Cardiac History: Congestive Heart Failure, Other Respiratory History: No Pertinent History Endocrine Medical History: Diabetes Type II, Hypothyroidism Musculoskelatal History: Arthritis GI Medical History: No Pertinent History History: No Pertinent History Pyscho-Social History: No Pertinent History Male Reproductive Disorders: No Pertinent History Comment: MITRAL VALVE PROLAPSE skin cancer - Past Surgical History Past Surgical History: Yes Neuro Surgical History: No Pertinent History Cardiac History: No Pertinent History Respiratory Surgery: No Pertinent History GI Surgical History: No Pertinent History Genitourinary Surgical Hx: No Pertinent History Musculskeletal Surgical Hx: Orthopedic Surgery Male Surgical History: No Pertinent History Other Surgical History: neck was broken he has rods in his neck. - Social History Smoking Status: Never smoker Exposure to second hand smoke: No Alcohol: None Drug Use: none - Physical Exam Vital Signs: Vital Signs - 24 hr Temp Pulse Resp BP Pulse Ox 09/03/18 16:00 18 09/03/18 15:39 98.3 F 85 18 146/66 99 09/03/18 14:49 98.3 F 85 18 146/66 99 09/03/18 14:28 98.3 F 85 18 146/66 99 09/03/18 13:47 83 20 130/86 100 09/03/18 12:56 86 20 160/91 97 09/03/18 12:47 98 09/03/18 12:01 89 18 157/90 99 09/03/18 11:30 82 18 160/88 97 09/03/18 10:04 97.9 F 88 22 153/85 98 General Appearance: no apparent distress, alert Neurologic Exam: cooperative, disoriented Eye Exam: other (eyes with bruised (purple macular) inferior eyelids bilat, L>R) Neck Exam: normal inspection, non-tender, No lymphadenopathy Respiratory Exam: normal breath sounds, lungs clear, No crackles/rales, No rhonchi, No wheezing Cardiovascular Exam: regular rate/rhythm, normal heart sounds, murmur (II/ sys murmur) Gastrointestinal/Abdomen Exam: soft, normal bowel sounds, No tenderness, No distention, No mass, No guarding, No rebound Extremity Exam: other (L forearm with indurated irregular nodules over approx [id number] area, with central ulceration with clear oozing approx 3x4cm area. nttp. Tr LE edema L>R R arm is wrapped) Results - Labs Lab/Micro Results: Accuchecks Date 09/03/18 Time 16:30 Accucheck Value: 173 Lab Results-Last 24 Hours 09/03/18 09/03/18 09/03/18 Range/Units 11:10 11:10 11:10 WBC 6.3 (4.0-10.5) K/mm3 RBC 3.84 L (4.1-5.6) M/mm3 Hgb 9.3 L (12.5-18.0) gm/dl Hct 30.4 L (42-50) % MCV 79.2 (78-100) fl MCH 24.2 L (26-32) pg MCHC 30.6 L (32-36) g/dl RDW 20.5 H (11.5-14.0) % Plt Count 240 (150-450) K/mm3 MPV 9.8 H (6-9.5) fl Gran % 76.2 H (36.0-66.0) % Eos # (Auto) 0.06 (0-0.5) Absolute Lymphs (auto) 0.79 L (1.0-4.6) Absolute Monos (auto) 0.64 (0.0-1.3) Lymphocytes % 12.5 L (24.0-44.0) % Monocytes % 10.1 (0.0-12.0) % Eosinophils % 1.0 (0.00-5.0) % Basophils % 0.2 (0.0-0.4) % Absolute Granulocytes 4.81 (1.4-6.9) Basophils # 0.01 (0-0.4) PT 12.9 H (8.83-12.87) SECONDS INR 1.11 (0.8-3.0) Sodium 140 (137-145) mmol/L Potassium 3.9 (3.5-5.1) mmol/L Chloride 99 (98-107) mmol/L Carbon Dioxide 29 (22-30) mmol/L Anion Gap 15.8 H (5-15) MEQ/L BUN 23 H (9-20) mg/dL Creatinine 1.02 (0.66-1.25) mg/dL Estimated GFR > 60.0 ML/MIN Glucose 231 H (74-106) mg/dL Calcium 8.9 (8.4-10.2) mg/dL Total Bilirubin 0.60 (0.2-1.3) mg/dL AST 16 L (17-59) U/L ALT 10 (0-50) U/L Alkaline Phosphatase 142 H (38-126) U/L Troponin I (0.000-0.034) ng/mL Serum Total Protein 8.2 (6.3-8.2) g/dL Albumin 4.0 (3.5-5.0) g/dL Prealbumin (17.6-36.0) mg/dL Urine Color (YELLOW) Urine Appearance (CLEAR) Urine pH (5-6) Ur Specific [place] (1.005-1.025) Urine Protein (Negative) Urine Ketones (NEGATIVE) Urine Blood (0-5) Ralph/ul Urine Nitrite (NEGATIVE) Urine Bilirubin (NEGATIVE) Urine Urobilinogen (0-1) mg/dL Ur Leukocyte Esterase (NEGATIVE) Urine WBC (Auto) (0-5) /HPF Urine RBC (Auto) (0-2) /HPF U Hyaline Cast (Auto) (0-2) /LPF U Epithel Cells (Auto) (FEW) /HPF Urine Bacteria (Auto) (NEGATIVE) /HPF Urine Culture Reflexed (NO) Urine Glucose (NEGATIVE) mg/dL 09/03/18 09/03/18 09/03/18 Range/Units 11:10 12:41 13:35 WBC (4.0-10.5) K/mm3 RBC (4.1-5.6) M/mm3 Hgb (12.5-18.0) gm/dl Hct (42-50) % MCV (78-100) fl MCH (26-32) pg MCHC (32-36) g/dl RDW (11.5-14.0) % Plt Count (150-450) K/mm3 MPV (6-9.5) fl Gran % (36.0-66.0) % Eos # (Auto) (0-0.5) Absolute Lymphs (auto) (1.0-4.6) Absolute Monos (auto) (0.0-1.3) Lymphocytes % (24.0-44.0) % Monocytes % (0.0-12.0) % Eosinophils % (0.00-5.0) % Basophils % (0.0-0.4) % Absolute Granulocytes (1.4-6.9) Basophils # (0-0.4) PT (8.83-12.87) SECONDS INR (0.8-3.0) Sodium (137-145) mmol/L Potassium (3.5-5.1) mmol/L Chloride (98-107) mmol/L Carbon Dioxide (22-30) mmol/L Anion Gap (5-15) MEQ/L BUN (9-20) mg/dL Creatinine (0.66-1.25) mg/dL Estimated GFR ML/MIN Glucose (74-106) mg/dL Calcium (8.4-10.2) mg/dL Total Bilirubin (0.2-1.3) mg/dL AST (17-59) U/L ALT (0-50) U/L Alkaline Phosphatase (38-126) U/L Troponin I < 0.012 < 0.012 (0.000-0.034) ng/mL Serum Total Protein (6.3-8.2) g/dL Albumin (3.5-5.0) g/dL Prealbumin (17.6-36.0) mg/dL Urine Color STRAW (YELLOW) Urine Appearance CLEAR (CLEAR) Urine pH 6.0 (5-6) Ur Specific [place] 1.009 (1.005-1.025) Urine Protein NEGATIVE (Negative) Urine Ketones NEGATIVE (NEGATIVE) Urine Blood SMALL (0-5) Ralph/ul Urine Nitrite NEGATIVE (NEGATIVE) Urine Bilirubin NEGATIVE (NEGATIVE) Urine Urobilinogen NEGATIVE (0-1) mg/dL Ur Leukocyte Esterase NEGATIVE (NEGATIVE) Urine WBC (Auto) 0-2 (0-5) /HPF Urine RBC (Auto) 0-2 (0-2) /HPF U Hyaline Cast (Auto) 0-2 (0-2) /LPF U Epithel Cells (Auto) NONE (FEW) /HPF Urine Bacteria (Auto) NONE (NEGATIVE) /HPF Urine Culture Reflexed NO (NO) Urine Glucose 150 (NEGATIVE) mg/dL 09/03/18 09/03/18 09/03/18 Range/Units 18:08 18:08 18:08 WBC 5.2 (4.0-10.5) K/mm3 RBC 3.65 L (4.1-5.6) M/mm3 Hgb 8.7 L (12.5-18.0) gm/dl Hct 28.6 L (42-50) % MCV 78.4 (78-100) fl MCH 23.8 L (26-32) pg MCHC 30.4 L (32-36) g/dl RDW 20.1 H (11.5-14.0) % Plt Count 246 (150-450) K/mm3 MPV 9.9 H (6-9.5) fl Gran % (36.0-66.0) % Eos # (Auto) (0-0.5) Absolute Lymphs (auto) (1.0-4.6) Absolute Monos (auto) (0.0-1.3) Lymphocytes % (24.0-44.0) % Monocytes % (0.0-12.0) % Eosinophils % (0.00-5.0) % Basophils % (0.0-0.4) % Absolute Granulocytes (1.4-6.9) Basophils # (0-0.4) PT (8.83-12.87) SECONDS INR (0.8-3.0) Sodium 139 (137-145) mmol/L Potassium 3.8 (3.5-5.1) mmol/L Chloride 101 (98-107) mmol/L Carbon Dioxide 30 (22-30) mmol/L Anion Gap 12.2 (5-15) MEQ/L BUN 18 (9-20) mg/dL Creatinine 0.83 (0.66-1.25) mg/dL Estimated GFR > 60.0 ML/MIN Glucose 166 H (74-106) mg/dL Calcium 9.2 (8.4-10.2) mg/dL Total Bilirubin (0.2-1.3) mg/dL AST (17-59) U/L ALT (0-50) U/L Alkaline Phosphatase (38-126) U/L Troponin I < 0.012 (0.000-0.034) ng/mL Serum Total Protein (6.3-8.2) g/dL Albumin (3.5-5.0) g/dL Prealbumin 9.94 L (17.6-36.0) mg/dL Urine Color (YELLOW) Urine Appearance (CLEAR) Urine pH (5-6) Ur Specific [place] (1.005-1.025) Urine Protein (Negative) Urine Ketones (NEGATIVE) Urine Blood (0-5) Ralph/ul Urine Nitrite (NEGATIVE) Urine Bilirubin (NEGATIVE) Urine Urobilinogen (0-1) mg/dL Ur Leukocyte Esterase (NEGATIVE) Urine WBC (Auto) (0-5) /HPF Urine RBC (Auto) (0-2) /HPF U Hyaline Cast (Auto) (0-2) /LPF U Epithel Cells (Auto) (FEW) /HPF Urine Bacteria (Auto) (NEGATIVE) /HPF Urine Culture Reflexed (NO) Urine Glucose (NEGATIVE) mg/dL Accuchecks Date 09/03/18 Time 16:30 Accucheck Value: 173 - Radiology Impressions Radiology Exams & Impressions: Radiology Procedures Category Date Time Status CHEST 1 VIEW (PORTABLE) Stat Exams 09/03/18 10:32 Completed HEAD WITHOUT CONTRAST [CT] Stat Exams 09/03/18 10:32 Completed Assessment/Plan (1) Cellulitis Current Visit: No Status: Acute Code(s): L03.90 - CELLULITIS, UNSPECIFIED (2) Skin tear Current Visit: No Status: Acute Assessment & Plan: wrapped on R arm Code(s): QMH7595 - (3) Disorientation Current Visit: Yes Status: Acute Assessment & Plan: unsure if this is chronic or acute. His head CT was neg. 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 Code(s): E11.9 - TYPE 2 DIABETES MELLITUS WITHOUT COMPLICATIONS
[2018-09-03] MEDS: Seroquel 25 MG PO SCH (22:21)
[2018-09-03] MEDS: FEOSOL 325 MG PO SCH (22:22)
[2018-09-03] MEDS: HALDOL 1 MG PO SCH (22:22)
[2018-09-03] MEDS: NovoLOG Insulin SQ PRN (22:30)
--- NOTE | 2018-09-04 07:44 | HP ---
CHIEF COMPLAINT: Fall, possible syncopal episode, open wounds to his arm. HISTORY OF PRESENT ILLNESS: The patient is an 83 year-old white male patient who the family reports the patient had fallen striking his head and he does have an abrasion over the top of his head. He has black eyes bilaterally. The patient reports that he tripped over something and struck his head. He does not believe that he passed out first. The patient has been treating some wounds over his arms that is felt to be skin cancer and has been receiving radiation therapy for this. The patient reports that he does live at home by himself currently and no one else is here this morning to interview. PAST MEDICAL/SURGICAL HISTORY: Significant for diabetes mellitus type 2, hypothyroid, congestive heart failure. He has mitral valve prolapse. He has what appears to be most likely squamous cell skin cancer on his arm. HOME MEDICATIONS: Lasix 40 mg b.i.d., [place] 5/325 mg PRN pain and potassium 10 mEq a day. ALLERGIES: NKDA. PHYSICAL EXAMINATION: His vital signs on admission showed his temperature to be 97.9F, pulse 88, respiratory rate 22, blood pressure 153/85. O2 saturation 98%. HEENT: Again consistent with the abrasion over his vertex and bruising over his eyes. The pupils are equal round reactive to light. Extraocular movements intact. Oropharynx is pink and moist. NECK: Supple without lymphadenopathy, thyromegaly or JVD. CHEST: Clear to auscultation with good air movement bilaterally. HEART: Reveals a systolic holosystolic without rubs or gallops and is regular. ABDOMEN: Soft without palpable masses. EXTREMITIES: Without cyanosis or clubbing. There is edema particularly over the left leg compared to the right. SKIN: Reveals the bandage areas on his arms from what appears to be skin tear on the right and the skin cancer on the left upper extremity. NEUROLOGIC: The patient appears to be alert and oriented x3 with no focal deficits noted. LAB DATA AND TESTS: Revealed his troponins to be less than 0.012. He had a glucose of 166, BUN 18, creatinine 0.83. Electrolytes were normal. His prealbumin is low at 9.94. His white count 5,200, hemoglobin 8.7, PLT count 246,000. He had an international normalized ratio of 1.11. He had a chest x-ray showing stable nonacute chest with chronic features. CT scan of the head showing normal aging brain with no new or acute intercranial abnormalities. ASSESSMENT: A patient with recent falls and has apparently not had syncopal episodes that he can tell. He does have the murmur but his heart has been regular otherwise and his O2 saturations appear to be okay. We placed him on telemetry for monitoring. We will have PT see him for wound care management for the wounds over his arms and we will check D-dimer and venous Doppler for left leg swelling possibly he will receive CT with pulmonary embolism protocol if either are positive. We will be checking with PT otherwise to see the patient's ability to ambulate. He may well need a stay in a rehab as apparently he lives alone and appears at this point he may not be able to care for himself at home at least at this point in time.
[2018-09-04] MEDS ORDERED: Glucophage 500 MG PO SCH (08:00)
[2018-09-04] MEDS: ENOXAPARIN SODIUM SQ SCH (10:14)
[2018-09-04] MEDS: FEOSOL 325 MG PO SCH ×3 (10:14→21:26)
[2018-09-04] MEDS: Januvia 50 MG PO SCH (10:14)
[2018-09-04] MEDS: Klor Con 10 MEQ PO SCH (10:15)
[2018-09-04] MEDS: SYNTHROID 50 MCG PO SCH (10:15)
[2018-09-04] MEDS: Lasix 40 MG PO SCH ×2 (10:15→18:29)
[2018-09-04] MEDS: CLARITIN 10 MG PO SCH (10:16)
[2018-09-04] MEDS: Seroquel 25 MG PO SCH ×2 (10:16→21:19)
[2018-09-04] MEDS: VANCOCIN 1 GM VIAL*** 1.5 GM in Sodium Chloride 0.9% 500 ML 500 ML IV SCH (10:24)
--- NOTE | 2018-09-04 11:52 | XRAY ---
Indication: Elevated d-dimer. Multiple contiguous axial images obtained through the chest using 100 cc Isovue 370 contrast and PE protocol. Comparison: July 19, 2018. There is satisfactory opacification of the pulmonary arteries to include the lobar and segmental branches. No filling defect or pulmonary embolus. Heart is not enlarged. Aorta remains mildly arteriosclerotic without aneurysm/dissection. Stable tiny right hilar calcified nodes. No pathologic mediastinal/hilar lymphadenopathy. Examination of the lung parenchyma again demonstrates bilateral dependent atelectasis, bibasilar fibrosis/scarring, and tiny right lower lobe calcified granuloma. New tiny bilateral pleural effusions. No suspicious pulmonary mass or infiltrate. Bony thorax again demonstrates osteopenia, flowing osteophytes throughout the spine, and remote T1 compression deformity. Upper abdomen again demonstrates dense gallbladder sludge/gravel in the dependent portion. Impression: 1. Negative pulmonary embolus. 2. New tiny bilateral effusions without cardiomegaly. 3. Stable bilateral atelectasis, fibrosis/scarring, and evidence for old granulomatous disease. 4. Again incidental gallbladder sludge/gravel. CT DI 22.59
--- NOTE | 2018-09-04 13:56 | XRAY ---
Indication: Left leg edema. Two-dimensional sonogram and color Doppler imaging of the major venous vessels of the left leg was performed. Comparison: None No thrombus seen of the examined deep venous vessels of the left leg including greater saphenous vein. Veins demonstrate normal compressibility. Venous waveforms are normal with and without augmentation. Impression: Left leg negative for DVT.
[2018-09-04] MEDS: NovoLOG Insulin SQ PRN ×2 (17:17→21:48)
[2018-09-04] MEDS: HALDOL 1 MG PO SCH (21:18)
[2018-09-04] MEDS: Sodium Chloride 0.9% 1000 ML 1,000 ML IV SCH (23:18)
[2018-09-05] MEDS: Lasix 40 MG PO SCH (09:30)
[2018-09-05] MEDS: Seroquel 25 MG PO SCH (09:30)
[2018-09-05] MEDS: VANCOCIN 1 GM VIAL*** 1.5 GM in Sodium Chloride 0.9% 500 ML 500 ML IV SCH (09:30)
[2018-09-05] MEDS: Klor Con 10 MEQ PO SCH (09:30)
[2018-09-05] MEDS: SYNTHROID 50 MCG PO SCH (09:31)
[2018-09-05] MEDS: ENOXAPARIN SODIUM SQ SCH (09:31)
[2018-09-05] MEDS: CLARITIN 10 MG PO SCH (09:31)
[2018-09-05] MEDS: Januvia 50 MG PO SCH (09:31)
[2018-09-05] MEDS: FEOSOL 325 MG PO SCH ×2 (09:31→14:51)
[2018-09-05] MEDS ORDERED: HOLD METFORMIN PRODUCTS FOR 48 HOURS MC SCH (10:00)
[2018-09-05 11:59] VITALS: BP 150/70; PULSE 80; O2SAT 99
--- NOTE | 2018-09-05 13:41 | DS ---
DISCHARGE DIAGNOSES: 1) FALL. 2) HEAD INJURY. 3) WOUNDS TO THE ARMS. HOSPITAL COURSE: The patient is an 83 year-old white male patient who has been falling recently. He fell and hit his head. He has ecchymosis in both eyes. He has abrasion over the top of his head. He also has wounds on both arms that have been draining. He was brought into the hospital for IV antibiotics and wound care management. He was admitted and started on IV Vancomycin. We had PT see the patient and felt that he was able to ambulate on his own. He was unwilling to go to the intermediate for rehab. He does live with his son and his son's . He reports that they will be there for him 02/01. The patient will be discharged home now on Bactrim DS twice a day for two weeks. He will have home PT and home visiting nurses to follow him as well. We will ask him to see us in the office in one week for follow up but otherwise he has been afebrile, stable vital signs. His white count has been normal. His blood cultures have been negative so far. His wound cultures were positive but these were felt to be likely contaminated. The patient did have swelling in the leg which was checked for deep venous thrombosis which was negative. He also had a positive D-dimer so a chest CT was performed and was negative for pulmonary embolism. Again, the patient was felt to be ready for discharge home at this time with instructions to return to the hospital if he had any problems in the interim.
[2018-09-06] MEDS ORDERED: TROUGH DRUG LEVELS IJ ONE (09:30)
== END 2018-09-05 15:46 | disposition home health service (06) ==
LOC: ED 10:03 → MED SURG 14:00
PROVIDERS: ADMIT Family Medicine; ATTEND Family Medicine
DX: S09.90XA Unspecified injury of head, initial encounter (principal); L03.114 Cellulitis of left upper limb; R55 Syncope and collapse; S05.12XA Contusion of eyeball and orbital tissues, left eye, initial encounter; S05.11XA Contusion of eyeball and orbital tissues, right eye, initial encounter; S41.112A Laceration without foreign body of left upper arm, initial encounter; S41.111A Laceration without foreign body of right upper arm, initial encounter; E03.9 Hypothyroidism, unspecified; R41.0 Disorientation, unspecified; R79.1 Abnormal coagulation profile; E11.9 Type 2 diabetes mellitus without complications; W19.XXXA Unspecified fall, initial encounter; C44.609 Unspecified malignant neoplasm of skin of left upper limb, including shoulder; Z79.899 Other long term (current) drug therapy; R01.1 Cardiac murmur, unspecified
CPT/HCPCS: 36000; 36415; 70450; 71045; 71260; 80048; 80053; 81001; 82962; 84134; 84484; 85025; 85027; 85379; 85610; 87040; 87070; 87077; 87186; 93005; 93268; 93971; 96360; 96361; 96365; 97161; 99285; G0378; J1650; J3370; A9270-GY

== ENCOUNTER 2018-10-06 22:00 | Emergency (ER) | payer MEDICARE ==
--- NOTE | 2018-10-06 22:09 | ERPHSYRPT ---
- History of Present Illness Time Seen by Provider: 10/06/18 22:09 Source: patient, family Exam Limitations: no limitations Physician History: 83 y/o diabetic white male presents with weakness since yesterday. pt has alzheimers and currently states he has no sx. however, family has noticed his activity level has decreased. pt currently denies cp, denies soa, denies abd pain, denies n/v/d. they were concerned because of an elevated bs of 170 Timing/Duration: yesterday Severity: mild Modifying Factors: Improves With: nothing Associated Symptoms: denies symptoms Allergies/Adverse Reactions: strawberry Allergy (Verified 10/06/18 22:02) Home Medications: Furosemide [Lasix] 40 mg PO BID 07/03/17 [History] Ferrous Sulfate 325 mg PO TID 09/03/18 [History] Levothyroxine Sodium [Synthroid] 50 mcg PO DAILY 09/03/18 [History] Loratadine 10 mg [Claritin 10 mg] 10 mg PO DAILY 09/03/18 [History] Metformin HCl 500 mg [Glucophage 500 MG] 500 mg PO BIDWM 09/03/18 [History ] Quetiapine Fumarate [Seroquel] 50 mg PO BID 09/03/18 [History] Sitagliptin Phosphate 50 MG [Januvia 50 MG] 100 mg PO DAILY 09/03/18 [ History] Haloperidol 2.5 mg PO HS 10/06/18 [History] Potassium Chloride 8 meq PO DAILY 10/06/18 [History] Hx Tetanus, Diphtheria Vaccination/Date Given: Yes Hx Influenza Vaccination/Date Given: Yes Hx Pneumococcal Vaccination/Date Given: Yes - Review of Systems Constitutional: Weakness Eyes: No Symptoms Ears, Nose, & Throat: No Symptoms Respiratory: No Symptoms Cardiac: No Symptoms Abdominal/Gastrointestinal: No Symptoms Genitourinary Symptoms: No Symptoms Musculoskeletal: No Symptoms Skin: No Symptoms Neurological: No Symptoms Psychological: No Symptoms Endocrine: No Symptoms Hematologic/Lymphatic: No Symptoms Immunological/Allergic: No Symptoms All Other Systems: Reviewed and Negative - Past Medical History Pertinent Past Medical History: Yes Neurological History: Dementia ENT History: No Pertinent History Cardiac History: Congestive Heart Failure, Other Respiratory History: No Pertinent History Endocrine Medical History: Diabetes Type II, Hypothyroidism Musculoskeletal History: Arthritis GI Medical History: No Pertinent History History: No Pertinent History Psycho-Social History: No Pertinent History Male Reproductive Disorders: No Pertinent History Other Medical History: MITRAL VALVE PROLAPSE skin cancer - Past Surgical History Past Surgical History: Yes Neuro Surgical History: No Pertinent History Cardiac: No Pertinent History Respiratory: No Pertinent History Gastrointestinal: No Pertinent History Genitourinary: No Pertinent History Musculoskeletal: Orthopedic Surgery Male Surgical History: No Pertinent History Other Surgical History: neck was broken he has rods in his neck. - Social History Smoking Status: Never smoker Exposure to second hand smoke: No Drug Use: none Patient Lives Alone: No - Nursing Vital Signs Nursing Vital Signs: Initial Vital Signs Temperature 99.8 F 10/06/18 22:04 Pulse Rate 88 10/06/18 22:04 Respiratory Rate 16 10/06/18 22:04 Blood Pressure 153/78 10/06/18 22:04 O2 Sat by Pulse Oximetry 99 10/06/18 22:04 - Physical Exam General Appearance: no apparent distress, alert Eye Exam: PERRL/EOMI, eyes nml inspection Ears, Nose, Throat Exam: normal ENT inspection, moist mucous membranes Neck Exam: normal inspection, non-tender, supple, full range of motion Respiratory Exam: normal breath sounds, lungs clear, airway intact, No chest tenderness, No respiratory distress, No accessory muscle use, No rhonchi, No wheezing, No stridor Cardiovascular Exam: regular rate/rhythm, normal heart sounds, normal peripheral pulses Gastrointestinal/Abdomen Exam: soft, normal bowel sounds, No tenderness, No guarding, No rebound Rectal Exam: not done Back Exam: normal inspection, normal range of motion, CVA tenderness Extremity Exam: normal inspection, normal range of motion, pelvis stable Neurologic Exam: alert, oriented x 3, cooperative, clinical education manager II-XII nml as tested Skin Exam: normal color, warm, dry Lymphatic Exam: adenopathy SpO2 Interpretation: normal O2 Delivery: Room Air - Course Nursing assessment & vital signs reviewed: Yes Ordered Tests: Active Orders 24 hr Category Date Time Status Clean Catch Urine Specimen STAT Care 10/06/18 22:24 Active CBC W DIFF Stat Lab 10/06/18 22:57 Completed CMP Stat Lab 10/06/18 22:57 Completed UA W/RFX UR CULTURE Stat Lab 10/06/18 23:03 Completed Medication Summary Discontinued Medications Generic Name Dose Route Start Last Admin Trade Name Freq PRN Reason Stop Dose Admin Sodium Chloride 500 mls @ 500 mls/hr 10/06/18 22:25 10/06/18 22:40 Sodium Chloride 0.9% 500 Ml IV 10/06/18 23:24 500 mls/hr .Q1H ONE Administration Sodium Chloride Confirm 10/06/18 22:38 Sodium Chloride 0.9% 500 Ml Administered 10/06/18 22:39 Dose 500 mls @ ud IV .STK-MED ONE Lab/Rad Data: Laboratory Result Diagrams 10/06/18 22:57 10/06/18 22:57 Laboratory Results 10/06/18 10/06/18 10/06/18 Range/Units 23:03 22:57 22:57 WBC 5.5 (4.0-10.5) K/mm3 RBC 3.74 L (4.1-5.6) M/mm3 Hgb 9.6 L (12.5-18.0) gm/dl Hct 30.7 L (42-50) % MCV 82.1 (78-100) fl MCH 25.6 L (26-32) pg MCHC 31.3 L (32-36) g/dl RDW 21.1 H (11.5-14.0) % Plt Count 235 (150-450) K/mm3 MPV 9.3 (6-9.5) fl Gran % 71.0 H (36.0-66.0) % Eos # (Auto) 0.10 (0-0.5) Absolute Lymphs (auto) 0.90 L (1.0-4.6) Absolute Monos (auto) 0.57 (0.0-1.3) Lymphocytes % 16.4 L (24.0-44.0) % Monocytes % 10.4 (0.0-12.0) % Eosinophils % 1.8 (0.00-5.0) % Basophils % 0.4 (0.0-0.4) % Absolute Granulocytes 3.90 (1.4-6.9) Basophils # 0.02 (0-0.4) Sodium 140 (137-145) mmol/L Potassium 3.8 (3.5-5.1) mmol/L Chloride 95 L (98-107) mmol/L Carbon Dioxide 31 H (22-30) mmol/L Anion Gap 17.5 H (5-15) MEQ/L BUN 21 H (9-20) mg/dL Creatinine 1.13 (0.66-1.25) mg/dL Estimated GFR > 60.0 ML/MIN Glucose 144 H (74-106) mg/dL Calcium 9.7 (8.4-10.2) mg/dL Total Bilirubin 0.50 (0.2-1.3) mg/dL AST 17 (17-59) U/L ALT 8 (0-50) U/L Alkaline Phosphatase 130 H (38-126) U/L Serum Total Protein 8.6 H (6.3-8.2) g/dL Albumin 4.2 (3.5-5.0) g/dL Urine Color STRAW (YELLOW) Urine Appearance CLEAR (CLEAR) Urine pH 6.0 (5-6) Ur Specific [place] 1.004 (1.005-1.025) Urine Protein NEGATIVE (Negative) Urine Ketones NEGATIVE (NEGATIVE) Urine Blood SMALL (0-5) Ralph/ul Urine Nitrite NEGATIVE (NEGATIVE) Urine Bilirubin NEGATIVE (NEGATIVE) Urine Urobilinogen NEGATIVE (0-1) mg/dL Ur Leukocyte Esterase NEGATIVE (NEGATIVE) Urine WBC (Auto) NONE (0-5) /HPF Urine RBC (Auto) NONE (0-2) /HPF U Epithel Cells (Auto) NONE (FEW) /HPF Urine Bacteria (Auto) NONE (NEGATIVE) /HPF Urine Culture Reflexed NO (NO) Urine Glucose NEGATIVE (NEGATIVE) mg/dL Slides for Path Review NO - Progress Progress: improved Counseled pt/family regarding: lab results, diagnosis, need for follow-up, rad results - Departure Departure Disposition: Home Clinical Impression: Weakness Condition: Stable Critical Care Time: No Referrals: SPARKLE ZHOU [Primary Care Provider] - Additional Instructions: drink plenty of fluids. monitor blood glucose closely. follow up with primary doctor on Monday for further management
[2018-10-06 22:10] VITALS: O2SAT 99
[2018-10-06] MEDS ORDERED: Sodium Chloride 0.9% 500 ML 500 ML IV ONE ×2 (22:25→22:38)
[2018-10-06 22:56] LABS: BASOPHIL % 0.4 % (0.0-0.4); Basophil (Absolute #) 0.02 (0-0.4); Eosinophil % 1.8 % (0.00-5.0); Hematocrit 30.7 % (42-50); Hemoglobin 9.6 gm/dl (12.5-18.0); Lymphocytes % 16.4 % (24.0-44.0); Mean Cell Volume 82.1 fl (78-100); Mean Corpuscular Hgb Concent. 31.3 g/dl (32-36); Mean Platelet Volume 9.3 fl (6-9.5); Monocyte (Absolute #) 0.57 (0.0-1.3); Monocytes % 10.4 % (0.0-12.0); Platelet Count 235 K/mm3 (150-450); Red Blood Count 3.74 M/mm3 (4.1-5.6); Red Cell Distribution Width 21.1 % (11.5-14.0); White Blood Count 5.5 K/mm3 (4.0-10.5)
[2018-10-06 22:59] LABS: Mean Corpuscular Hemoglobin 25.6 pg (26-32)
[2018-10-06 23:00] LABS: Appearance CLEAR (CLEAR); Bilirubin NEGATIVE (NEGATIVE); Blood SMALL Ery/ul (0-5); Glucose NEGATIVE (NEGATIVE); Ketones NEGATIVE (NEGATIVE); Leukocyte Esterase NEGATIVE (NEGATIVE); Nitrite NEGATIVE (NEGATIVE); Protein,Urine Dip NEGATIVE (Negative); Specific Gravity 1.004 (1.005-1.025); Urobilinogen NEGATIVE mg/dL (0-1)
[2018-10-06 23:10] LABS: ALBUMIN 4.2 g/dL (3.5-5.0); ALKALINE PHOSPHATASE 130 U/L (38-126); ANION GAP 17.5 MEQ/L (5-15); BLOOD UREA NITROGEN 21 mg/dL (9-20); CHLORIDE 95 mmol/L (98-107); Calcium 9.7 mg/dL (8.4-10.2); Carbon Dioxide 31 mmol/L (22-30); Creatinine 1 1.13 mg/dL (0.66-1.25); Glucose 144 mg/dL (74-106); Potassium 3.8 mmol/L (3.5-5.1); SGOT/AST 17 U/L (17-59); SGPT/ALT 8 U/L (0-50); SODIUM 140 mmol/L (137-145); Total Protein 8.6 g/dL (6.3-8.2)
[2018-10-06 23:25] LABS: Slide Review 1 NO
[2018-10-06 23:42] VITALS: BP 130/68; PULSE 94
== END 2018-10-06 23:51 | disposition home or self-care (01) ==
LOC: ED 22:00
DX: R53.1 Weakness (principal); F03.90 Unspecified dementia, unspecified severity, without behavioral disturbance, psychotic disturbance, mood disturbance, and anxiety; E11.9 Type 2 diabetes mellitus without complications; E03.9 Hypothyroidism, unspecified; M19.90 Unspecified osteoarthritis, unspecified site; I34.1 Nonrheumatic mitral (valve) prolapse; Z85.828 Personal history of other malignant neoplasm of skin
CPT/HCPCS: 36000; 36415; 80053; 81001; 85025; 96360; 99284

== ENCOUNTER 2018-10-09 23:11 | Observation (INO) | payer MEDICARE ==
[2018-10-09] MEDS ORDERED: Rocephin 1000 MG INJ IM STA (23:42)
[2018-10-09] MEDS ORDERED: Vancomycin 1GM/ Ns 250ML*** 1 GM/250 ML IVPB IV ONE (23:44)
[2018-10-09] MEDS ORDERED: Sodium Chloride 0.9% 1000 ML 1,000 ML IV SCH (23:45)
[2018-10-09] MEDS ORDERED: Vancomycin 1GM/ Ns 250ML*** 250 ML IV ONE (23:59)
[2018-10-09] MEDS ORDERED: Sodium Chloride 0.9% 1000 ML 1,000 ML ONE (23:59)
[2018-10-10 00:08] LABS: BASOPHIL % 0.7 % (0.0-0.4); Basophil (Absolute #) 0.04 (0-0.4); Eosinophil % 1.7 % (0.00-5.0); Granulocyte Absolute (ANC) 3.99 (1.4-6.9); Granulocytes % 66.2 % (36.0-66.0); Hematocrit 29.8 % (42-50); Hemoglobin 9.2 gm/dl (12.5-18.0); Lymphocyte (Absolute #) 1.18 (1.0-4.6); Lymphocytes % 19.6 % (24.0-44.0); Mean Cell Volume 83.7 fl (78-100); Mean Corpuscular Hemoglobin 25.8 pg (26-32); Mean Corpuscular Hgb Concent. 30.9 g/dl (32-36); Mean Platelet Volume 9.3 fl (6-9.5); Monocyte (Absolute #) 0.71 (0.0-1.3); Monocytes % 11.8 % (0.0-12.0); Platelet Count 241 K/mm3 (150-450); Red Blood Count 3.56 M/mm3 (4.1-5.6); Red Cell Distribution Width 20.2 % (11.5-14.0)
[2018-10-10 00:20] LABS: BILIRUBIN,TOTAL 0.6 mg/dL (0.2-1.3); Calcium 9.5 mg/dL (8.4-10.2); Creatinine 1 1.63 mg/dL (0.66-1.25); Potassium 3.9 mmol/L (3.5-5.1); Total Protein 8.1 g/dL (6.3-8.2)
[2018-10-10 01:14] LABS: Appearance CLEAR (CLEAR); Bilirubin NEGATIVE (NEGATIVE); Blood SMALL Ery/ul (0-5); Glucose NEGATIVE (NEGATIVE); Ketones NEGATIVE (NEGATIVE); Leukocyte Esterase NEGATIVE (NEGATIVE); Mucus SLIGHT /HPF (NEGATIVE); Nitrite NEGATIVE (NEGATIVE); Protein,Urine Dip NEGATIVE (Negative); Specific Gravity 1.006 (1.005-1.025); Urobilinogen NEGATIVE mg/dL (0-1)
--- NOTE | 2018-10-10 01:57 | ERPHSYRPT ---
- History of Present Illness Source: patient Exam Limitations: clinical condition Patient Subjective Stated Complaint: pt c/o legs red and swelling Triage Nursing Assessment: lungs clear, heart tones reg, abd soft with active bs x4 quad. Lt lower ext is very red and edematous. Rt lower leg is pink and slighlty swollen. Pt has open wound to lt wrist area. Physician History: Pt is 83 y/o male with dementia, that presented to the ED with swelling and erythema of the L LE. The pt denies any pain in the calf, on palpation, but per the son, the leg started swelling and being erythematous today. The pt denies all other complains, but is a poor historian secondary to dementia. Method of Injury: unknown Occurred: this morning Quality: constant Lower Extremities Pain: leg: left (Cellulitis with erythema and edema.) Modifying Factors: Improves With: nothing Associated Symptoms: none Allergies/Adverse Reactions: strawberry Allergy (Verified 10/06/18 22:02) Home Medications: Furosemide [Lasix] 40 mg PO BID 07/03/17 [History] Ferrous Sulfate 325 mg PO TID 09/03/18 [History] Levothyroxine Sodium [Synthroid] 50 mcg PO DAILY 09/03/18 [History] Loratadine 10 mg [Claritin 10 mg] 10 mg PO DAILY 09/03/18 [History] Metformin HCl 500 mg [Glucophage 500 MG] 500 mg PO BIDWM 09/03/18 [History ] Quetiapine Fumarate [Seroquel] 50 mg PO BID 09/03/18 [History] Sitagliptin Phosphate 50 MG [Januvia 50 MG] 100 mg PO DAILY 09/03/18 [ History] Haloperidol 2.5 mg PO HS 10/06/18 [History] Potassium Chloride 8 meq PO DAILY 10/06/18 [History] Hx Tetanus, Diphtheria Vaccination/Date Given: Yes Hx Influenza Vaccination/Date Given: Yes Hx Pneumococcal Vaccination/Date Given: Yes Immunizations Up to Date: Yes - Review of Systems Constitutional: Other (Pt with dementia. Poor historian and can't give clear ROS.) - Past Medical History Pertinent Past Medical History: Yes Neurological History: Alzheimer's Disease, Dementia ENT History: No Pertinent History Cardiac History: Congestive Heart Failure, Other Respiratory History: No Pertinent History Endocrine Medical History: Diabetes Type II, Hypothyroidism Musculoskeletal History: Arthritis GI Medical History: No Pertinent History History: No Pertinent History Psycho-Social History: No Pertinent History Male Reproductive Disorders: No Pertinent History Other Medical History: MITRAL VALVE PROLAPSE, skin cancer - Past Surgical History Past Surgical History: Yes Neuro Surgical History: No Pertinent History Cardiac: No Pertinent History Respiratory: No Pertinent History Gastrointestinal: No Pertinent History Genitourinary: No Pertinent History Musculoskeletal: Orthopedic Surgery Male Surgical History: No Pertinent History Other Surgical History: neck was broken he has rods in his neck. - Social History Smoking Status: Never smoker Exposure to second hand smoke: Yes Drug Use: none Patient Lives Alone: No - Nursing Vital Signs Nursing Vital Signs: Initial Vital Signs Temperature 97.9 F 10/09/18 23:12 Pulse Rate 99 H 10/09/18 23:12 Respiratory Rate 20 10/09/18 23:12 Blood Pressure 141/94 10/09/18 23:12 O2 Sat by Pulse Oximetry 99 10/09/18 23:12 Pain Scale Pain Intensity 0 - Physical Exam General Appearance: no apparent distress Eyes, Ears, Nose, Throat Exam: normal ENT inspection, moist mucous membranes Neck Exam: normal inspection Cardiovascular/Respiratory Exam: chest non-tender, normal breath sounds, regular rate/rhythm, no respiratory distress Gastrointestinal/Abdominal Exam: non-tender, guarding Legs Exam: left leg: swelling (and erythema secondary to cellulitis) Neuro/Tendon Exam: normal sensation, normal motor functions Mental Status Exam: alert, other (severe demntia) Skin Exam: other (cellulitis of the L LE) SpO2: 97 - Course Nursing assessment & vital signs reviewed: Yes Ordered Tests: Active Orders 24 hr Category Date Time Status IV Insertion STAT Care 10/09/18 23:53 Active CBC W DIFF Stat Lab 10/09/18 23:55 Completed CMP Stat Lab 10/09/18 23:55 Completed Lactic Acid Stat Lab 10/09/18 23:42 Completed Medication Summary Generic Name Dose Route Start Last Admin Trade Name Freq PRN Reason Stop Dose Admin Ceftriaxone Sodium mg 10/09/18 23:42 Rocephin 1000 Mg Inj IM 10/09/18 23:43 STAT STA Sodium Chloride 1,000 mls @ 50 mls/hr 10/09/18 23:45 10/10/18 00:06 Sodium Chloride 0.9% 1000 Ml IV 11/08/18 23:44 50 mls/hr .Q20H DONNA Administration Discontinued Medications Generic Name Dose Route Start Last Admin Trade Name Eliezerq PRN Reason Stop Dose Admin Vancomycin HCl 1 gm in 250 mls @ 167 mls/hr 10/09/18 23:44 10/10/18 00:06 Vancomycin 1gm/ Ns 250ml IV 10/10/18 01:13 167 mls/hr STAT ONE Administration Vancomycin HCl Confirm 10/09/18 23:59 Vancomycin 1gm/ Ns 250ml Administered 10/10/18 00:00 Dose 250 mls @ ud IV .STK-MED ONE Lab/Rad Data: Laboratory Result Diagrams 10/09/18 23:55 10/09/18 23:55 Laboratory Results 10/10/18 10/09/18 10/09/18 Range/Units 00:40 23:55 23:55 WBC 6.0 (4.0-10.5) K/mm3 RBC 3.56 L (4.1-5.6) M/mm3 Hgb 9.2 L (12.5-18.0) gm/dl Hct 29.8 L (42-50) % MCV 83.7 (78-100) fl MCH 25.8 L (26-32) pg MCHC 30.9 L (32-36) g/dl RDW 20.2 H (11.5-14.0) % Plt Count 241 (150-450) K/mm3 MPV 9.3 (6-9.5) fl Gran % 66.2 H (36.0-66.0) % Eos # (Auto) 0.10 (0-0.5) Absolute Lymphs (auto) 1.18 (1.0-4.6) Absolute Monos (auto) 0.71 (0.0-1.3) Lymphocytes % 19.6 L (24.0-44.0) % Monocytes % 11.8 (0.0-12.0) % Eosinophils % 1.7 (0.00-5.0) % Basophils % 0.7 (0.0-0.4) % Absolute Granulocytes 3.99 (1.4-6.9) Basophils # 0.04 (0-0.4) Sodium 137 (137-145) mmol/L Potassium 3.9 (3.5-5.1) mmol/L Chloride 98 (98-107) mmol/L Carbon Dioxide 28 (22-30) mmol/L Anion Gap 16.0 H (5-15) MEQ/L BUN 27 H (9-20) mg/dL Creatinine 1.63 H (0.66-1.25) mg/dL Estimated GFR 43.0 ML/MIN Glucose 144 H (74-106) mg/dL Lactic Acid 1.0 (0.4-2.0) Calcium 9.5 (8.4-10.2) mg/dL Total Bilirubin 0.60 (0.2-1.3) mg/dL AST 19 (17-59) U/L ALT 8 (0-50) U/L Alkaline Phosphatase 120 (38-126) U/L Serum Total Protein 8.1 (6.3-8.2) g/dL Albumin 4.0 (3.5-5.0) g/dL Urine Color (YELLOW) Urine Appearance (CLEAR) Urine pH (5-6) Ur Specific [place] (1.005-1.025) Urine Protein (Negative) Urine Ketones (NEGATIVE) Urine Blood (0-5) Ralph/ul Urine Nitrite (NEGATIVE) Urine Bilirubin (NEGATIVE) Urine Urobilinogen (0-1) mg/dL Ur Leukocyte Esterase (NEGATIVE) Urine WBC (Auto) (0-5) /HPF Urine RBC (Auto) (0-2) /HPF U Hyaline Cast (Auto) (0-2) /LPF U Epithel Cells (Auto) (FEW) /HPF Urine Bacteria (Auto) (NEGATIVE) /HPF Urine Mucus (Auto) (NEGATIVE) /HPF Urine Glucose (NEGATIVE) mg/dL 10/09/18 Range/Units 00:30 WBC (4.0-10.5) K/mm3 RBC (4.1-5.6) M/mm3 Hgb (12.5-18.0) gm/dl Hct (42-50) % MCV (78-100) fl MCH (26-32) pg MCHC (32-36) g/dl RDW (11.5-14.0) % Plt Count (150-450) K/mm3 MPV (6-9.5) fl Gran % (36.0-66.0) % Eos # (Auto) (0-0.5) Absolute Lymphs (auto) (1.0-4.6) Absolute Monos (auto) (0.0-1.3) Lymphocytes % (24.0-44.0) % Monocytes % (0.0-12.0) % Eosinophils % (0.00-5.0) % Basophils % (0.0-0.4) % Absolute Granulocytes (1.4-6.9) Basophils # (0-0.4) Sodium (137-145) mmol/L Potassium (3.5-5.1) mmol/L Chloride (98-107) mmol/L Carbon Dioxide (22-30) mmol/L Anion Gap (5-15) MEQ/L BUN (9-20) mg/dL Creatinine (0.66-1.25) mg/dL Estimated GFR ML/MIN Glucose (74-106) mg/dL Lactic Acid (0.4-2.0) Calcium (8.4-10.2) mg/dL Total Bilirubin (0.2-1.3) mg/dL AST (17-59) U/L ALT (0-50) U/L Alkaline Phosphatase (38-126) U/L Serum Total Protein (6.3-8.2) g/dL Albumin (3.5-5.0) g/dL Urine Color STRAW (YELLOW) Urine Appearance CLEAR (CLEAR) Urine pH 5.0 (5-6) Ur Specific [place] 1.006 (1.005-1.025) Urine Protein NEGATIVE (Negative) Urine Ketones NEGATIVE (NEGATIVE) Urine Blood SMALL (0-5) Ralph/ul Urine Nitrite NEGATIVE (NEGATIVE) Urine Bilirubin NEGATIVE (NEGATIVE) Urine Urobilinogen NEGATIVE (0-1) mg/dL Ur Leukocyte Esterase NEGATIVE (NEGATIVE) Urine WBC (Auto) NONE (0-5) /HPF Urine RBC (Auto) NONE (0-2) /HPF U Hyaline Cast (Auto) 6-10 (0-2) /LPF U Epithel Cells (Auto) NONE (FEW) /HPF Urine Bacteria (Auto) NONE (NEGATIVE) /HPF Urine Mucus (Auto) SLIGHT (NEGATIVE) /HPF Urine Glucose NEGATIVE (NEGATIVE) mg/dL - Progress Progress Note: 10/10/18 01:57 Pt had labs done, that were normal, including UA. I started pt on Vanco and Rocephin IV. Dr León accepted for obs. Discussed with : Mau Will see patient in: hospital (observation) - Departure Departure Disposition: Observation Clinical Impression: Left leg cellulitis, Cellulitis Condition: Stable Critical Care Time: No Referrals: SPARKLE LEÓN [Primary Care Provider] - Additional Instructions: Pt was accepted as obs by Dr León for Cellulitis.
[2018-10-10] MEDS ORDERED: Sodium Chloride 0.9% 1000 ML 1,000 ML IV SCH (02:00)
[2018-10-10 06:07] LABS: BASOPHIL % 0.6 % (0.0-0.4); Basophil (Absolute #) 0.03 (0-0.4); Eosinophil % 2.3 % (0.00-5.0); Eosinophil (Absolute #) 0.12 (0-0.5); Granulocyte Absolute (ANC) 3.32 (1.4-6.9); Granulocytes % 63.8 % (36.0-66.0); Hematocrit 31.3 % (42-50); Hemoglobin 9.7 gm/dl (12.5-18.0); Lymphocyte (Absolute #) 1.16 (1.0-4.6); Lymphocytes % 22.3 % (24.0-44.0); Mean Cell Volume 82.8 fl (78-100); Mean Platelet Volume 9.1 fl (6-9.5); Monocyte (Absolute #) 0.57 (0.0-1.3); Platelet Count 262 K/mm3 (150-450); Red Blood Count 3.78 M/mm3 (4.1-5.6); Red Cell Distribution Width 20.2 % (11.5-14.0); White Blood Count 5.2 K/mm3 (4.0-10.5)
[2018-10-10 06:29] LABS: Mean Corpuscular Hemoglobin 25.6 pg (26-32)
[2018-10-10 06:31] LABS: ANION GAP 16.5 MEQ/L (5-15); Calcium 9.4 mg/dL (8.4-10.2); Creatinine 1 1.3 mg/dL (0.66-1.25); Potassium 3.7 mmol/L (3.5-5.1)
--- NOTE | 2018-10-10 08:23 | HP ---
CHIEF COMPLAINT: Left leg swelling and redness below the knee. HISTORY OF PRESENT ILLNESS: The patient is an 83 year-old white male patient living at home with his son and [id number]. He apparently began having problems with swelling and redness of the lower extremities that they noticed, brought him to the emergency room, diagnosed with cellulitis and admitted to the hospital for further evaluation and treatment. PAST MEDICAL/SURGICAL HISTORY: Otherwise significant for diabetes mellitus type 2, hypothyroidism. He has dementia. HOME MEDICATIONS: Lasix 40 mg b.i.d., iron 325 t.i.d., Synthroid 50 mcg a day, loratadine 10 mg a day, Metformin 500 mg b.i.d., Seroquel 50 mg b.i.d., Januvia 50 mg tablets 2 tablets a day, Haldol 2.5 mg at night, potassium 8 mEq a day. ALLERGIES: NKDA. STRAWBERRY. PHYSICAL EXAMINATION: Revealed a well-nourished, well-developed 83 year-old white male patient in no obvious distress. His temperature on admission showed 97.7F, pulse 99, respiratory rate 20, blood pressure 141/94. O2 saturation 99%. HEENT: Normocephalic, atraumatic. Pupils equal round reactive to light. Extraocular movements intact. He has drooping of both lower lids. Oropharynx is pink and moist. NECK: Supple without lymphadenopathy, thyromegaly or JVD. CHEST: Clear to auscultation with good air movement bilaterally. HEART: Regular rate and rhythm without murmurs, rubs or gallops. ABDOMEN: Soft without palpable masses. EXTREMITIES: Show no cyanosis, clubbing or edema. There is cellulitis noted of the left lower extremity from approximately the foot halfway up the bashir on the left side. He has demarcated from the emergency room purple line and the cellulitis has resolved somewhat back from that point. NEUROLOGIC: The patient appears to be in good spirits. He is somewhat confused no more so than his normal status. LAB DATA AND TESTS: Nonfasting glucose 134. BUN 24, creatinine 1.3. Electrolytes were normal. White count was 5,200, hemoglobin 9.7, PLT count 262,000. UA was essentially normal. Lactic acid 1.0. Liver enzymes were normal. Bilirubin was normal. ASSESSMENT: A patient with cellulitis of left lower extremity. He has been admitted to the hospital for IV antibiotic treatments and started on Rocephin and Vancomycin. We will recheck his labs in the morning. We will cover his sugar with sliding scale coverage, continue his usual home medications for his diabetes and dementia issues.
[2018-10-10] MEDS ORDERED: Vancomycin 1GM/ Ns 250ML*** 1 GM/250 ML IVPB IV SCH (10:00)
[2018-10-10] MEDS ORDERED: NON-FORMULARY ITEM (Potassium Chloride [Potassium Chloride] 8 MEQ) PO SCH (10:00)
[2018-10-10] MEDS ORDERED: NON-FORMULARY ITEM (Quetiapine Fumarate [Seroquel] 50 MG) PO SCH (10:00)
[2018-10-10] MEDS: Januvia 50 MG PO SCH (10:06)
[2018-10-10] MEDS: ROCEPHIN 1 Gm-D5w 50 ml Bag** 1 G/50 ML IVPB IV SCH (10:07)
[2018-10-10] MEDS: FEOSOL 325 MG PO SCH ×3 (10:07→22:20)
[2018-10-10] MEDS: SYNTHROID 50 MCG PO SCH (10:07)
[2018-10-10] MEDS: CLARITIN 10 MG PO SCH (10:07)
[2018-10-10] MEDS: Klor Con 10 MEQ PO SCH (10:07)
[2018-10-10] MEDS: ENOXAPARIN SODIUM SQ SCH (10:07)
[2018-10-10] MEDS: Seroquel 25 MG PO SCH ×2 (10:07→22:20)
[2018-10-10] MEDS: Lasix 40 MG PO SCH ×2 (10:07→17:08)
[2018-10-10] MEDS: VANCOCIN 500 MG VIAL*** 500 MG in Sodium Chloride 100ML MINI-BAG PLUS 100 ML IV SCH ×2 (10:10→22:20)
[2018-10-10] MEDS: Glucophage 500 MG PO SCH ×2 (10:10→17:08)
--- NOTE | 2018-10-10 10:27 | XRAY ---
Indication: Swelling. Cellulitis. Two-dimensional sonogram and color Doppler imaging of the major venous vessels of the left leg was performed. Comparison: September 04, 2018. Again no thrombus seen in the examined deep venous vessels of the left leg including greater saphenous vein. Veins demonstrate normal compressibility. Venous waveforms are normal with and without augmentation. Impression: Left leg again negative for DVT.
[2018-10-10] MEDS ORDERED: TYLENOL 325 MG PO PRN (17:05)
[2018-10-10] MEDS: Haldol 5 MG PO SCH (22:20)
[2018-10-11 06:19] LABS: BASOPHIL % 0.2 % (0.0-0.4); Basophil (Absolute #) 0.01 (0-0.4); Eosinophil % 1.9 % (0.00-5.0); Eosinophil (Absolute #) 0.09 (0-0.5); Granulocyte Absolute (ANC) 3.52 (1.4-6.9); Granulocytes % 72.5 % (36.0-66.0); Hematocrit 28.6 % (42-50); Hemoglobin 8.9 gm/dl (12.5-18.0); Lymphocyte (Absolute #) 0.79 (1.0-4.6); Lymphocytes % 16.3 % (24.0-44.0); Mean Cell Volume 83.1 fl (78-100); Mean Corpuscular Hgb Concent. 31.1 g/dl (32-36); Mean Platelet Volume 9.7 fl (6-9.5); Monocyte (Absolute #) 0.44 (0.0-1.3); Monocytes % 9.1 % (0.0-12.0); Platelet Count 243 K/mm3 (150-450); Red Blood Count 3.44 M/mm3 (4.1-5.6); Red Cell Distribution Width 19.8 % (11.5-14.0); White Blood Count 4.9 K/mm3 (4.0-10.5)
[2018-10-11 06:26] LABS: Mean Corpuscular Hemoglobin 25.8 pg (26-32)
[2018-10-11 06:39] LABS: ALBUMIN 3.4 g/dL (3.5-5.0); ALKALINE PHOSPHATASE 103 U/L (38-126); ANION GAP 14.6 MEQ/L (5-15); BLOOD UREA NITROGEN 18 mg/dL (9-20); CHLORIDE 100 mmol/L (98-107); Calcium 8.8 mg/dL (8.4-10.2); Carbon Dioxide 29 mmol/L (22-30); Creatinine 1 1.18 mg/dL (0.66-1.25); Glucose 163 mg/dL (74-106); Potassium 3.6 mmol/L (3.5-5.1); SGOT/AST 18 U/L (17-59); SGPT/ALT 9 U/L (0-50); SODIUM 140 mmol/L (137-145)
[2018-10-11] MEDS: Glucophage 500 MG PO SCH ×2 (08:20→16:35)
[2018-10-11] MEDS: ROCEPHIN 1 Gm-D5w 50 ml Bag** 1 G/50 ML IVPB IV SCH (10:16)
[2018-10-11] MEDS: Klor Con 10 MEQ PO SCH (10:17)
[2018-10-11] MEDS: FEOSOL 325 MG PO SCH ×3 (10:17→22:14)
[2018-10-11] MEDS: Lasix 40 MG PO SCH ×2 (10:17→16:34)
[2018-10-11] MEDS: Januvia 50 MG PO SCH (10:17)
[2018-10-11] MEDS: SYNTHROID 50 MCG PO SCH (10:17)
[2018-10-11] MEDS: Seroquel 25 MG PO SCH ×2 (10:17→22:15)
[2018-10-11] MEDS: CLARITIN 10 MG PO SCH (10:17)
[2018-10-11] MEDS: ENOXAPARIN SODIUM SQ SCH (10:18)
[2018-10-11] MEDS: VANCOCIN 500 MG VIAL*** 500 MG in Sodium Chloride 100ML MINI-BAG PLUS 100 ML IV SCH ×2 (11:58→22:14)
[2018-10-11] MEDS: NovoLOG Insulin SQ PRN (12:07)
[2018-10-11] MEDS: Haldol 5 MG PO SCH (22:14)
[2018-10-12] MEDS: Glucophage 500 MG PO SCH ×2 (08:00→16:24)
[2018-10-12] MEDS: ENOXAPARIN SODIUM SQ SCH (09:30)
[2018-10-12] MEDS ORDERED: TROUGH DRUG LEVELS IJ ONE (09:30)
[2018-10-12] MEDS: Januvia 50 MG PO SCH (09:31)
[2018-10-12] MEDS: FEOSOL 325 MG PO SCH ×2 (09:31→14:24)
[2018-10-12] MEDS: CLARITIN 10 MG PO SCH (09:31)
[2018-10-12] MEDS: Klor Con 10 MEQ PO SCH (09:31)
[2018-10-12] MEDS: ROCEPHIN 1 Gm-D5w 50 ml Bag** 1 G/50 ML IVPB IV SCH (09:32)
[2018-10-12] MEDS: SYNTHROID 50 MCG PO SCH (09:32)
[2018-10-12] MEDS: Lasix 40 MG PO SCH ×2 (09:32→16:24)
[2018-10-12] MEDS: Seroquel 25 MG PO SCH (09:32)
[2018-10-12] MEDS: VANCOCIN 500 MG VIAL*** 500 MG in Sodium Chloride 100ML MINI-BAG PLUS 100 ML IV SCH (09:33)
--- NOTE | 2018-10-12 10:25 | DS ---
DISCHARGE DIAGNOSIS: CELLULITIS OF LOWER EXTREMITY. HISTORY: The patient is an 83 year-old white male patient who presented to the hospital with complaints of left leg swelling, warmth and redness. He was seen in the emergency room and admitted to the hospital for IV antibiotics. HOSPITAL COURSE: The patient was admitted to the [facility], began on IV Vancomycin and Rocephin. We saw almost immediate improvement in the cellulitis with these medications. Over the ensuing couple of days the redness continued to improve. He is now left with just minimal redness posteriorly in that leg. The patient during his stay also had trouble with wandering around trying to get up out of the bed due to his dementia issues although he was kept safe during his stay. He is now felt to be ready for discharge back home where he lives with his son and [id number]. He will be discharged home on his usual home medications which are Lasix 40 mg b.i.d., iron 325 mg t.i.d., levothyroxine 50 mcg a day, Claritin 10 mg a day, Metformin 500 mg b.i.d., Seroquel 50 mg b.i.d., Januvia 100 mg daily, Haldol 2.5 mg at night and potassium 80 mEq a day. He will also be on Bactrim DS twice a day for seven days and Keflex 500 mg t.i.d. for seven days. He will have a visit in my office in one week for follow up. He is to return to the hospital if he has any worsening in his condition in the interim.
[2018-10-12 11:35] VITALS: O2SAT 96
[2018-10-12] MEDS: NovoLOG Insulin SQ PRN (11:59)
[2018-10-12 16:52] VITALS: BP 131/66; PULSE 89
== END 2018-10-12 16:45 | disposition home or self-care (01) ==
LOC: ED 23:11 → MED SURG 10-10 02:39
PROVIDERS: ADMIT Family Medicine; ATTEND Family Medicine
DX: L03.116 Cellulitis of left lower limb (principal); E11.9 Type 2 diabetes mellitus without complications; E03.9 Hypothyroidism, unspecified; F03.90 Unspecified dementia, unspecified severity, without behavioral disturbance, psychotic disturbance, mood disturbance, and anxiety; Z79.899 Other long term (current) drug therapy
CPT/HCPCS: 36000; 36415; 80048; 80053; 81001; 82962; 83605; 85025; 87040; 93971; 96360; 96361; 96365; 99285; G0378; J0696; J1650; J3370; A9270-GY

== ENCOUNTER 2018-10-18 16:08 | Inpatient (IN) | payer MEDICARE ==
[2018-10-18 16:36] LABS: BASOPHIL % 0.5 % (0.0-0.4); Basophil (Absolute #) 0.03 (0-0.4); Eosinophil (Absolute #) 0.06 (0-0.5); Granulocyte Absolute (ANC) 4.14 (1.4-6.9); Granulocytes % 70.1 % (36.0-66.0); Hematocrit 27.4 % (42-50); Hemoglobin 8.9 gm/dl (12.5-18.0); Lymphocyte (Absolute #) 1.13 (1.0-4.6); Lymphocytes % 19.2 % (24.0-44.0); Mean Cell Volume 82.5 fl (78-100); Mean Corpuscular Hemoglobin 26.8 pg (26-32); Mean Corpuscular Hgb Concent. 32.5 g/dl (32-36); Mean Platelet Volume 8.9 fl (6-9.5); Monocyte (Absolute #) 0.54 (0.0-1.3); Monocytes % 9.2 % (0.0-12.0); Platelet Count 303 K/mm3 (150-450); Red Blood Count 3.32 M/mm3 (4.1-5.6); Red Cell Distribution Width 19.5 % (11.5-14.0); White Blood Count 5.9 K/mm3 (4.0-10.5)
[2018-10-18 16:45] LABS: ANION GAP 19.6 MEQ/L (5-15); Calcium 8.8 mg/dL (8.4-10.2); Creatinine 1 3.49 mg/dL (0.66-1.25); Potassium 4.7 mmol/L (3.5-5.1)
--- NOTE | 2018-10-18 16:53 | XRAY ---
Indication: CVA. Possible stroke. Multiple contiguous axial images obtained through the head without contrast. Comparison: September 07, 2018. Stable age-appropriate global atrophy and minimal periventricular degenerative microvascular ischemia. No acute intracranial hemorrhage, abnormal extra-axial fluid collection, or mass effect. Fourth ventricle is midline without hydrocephalus. Bony calvarium intact. Visualized left maxillary sinus now demonstrates posterior mucosal thickening. Remaining visualized paranasal sinuses and mastoid air cells are clear. Impression: Again nonacute senile brain. New left maxillary sinus disease. CTDI 71.08
--- NOTE | 2018-10-18 17:02 | XRAY ---
Indication: CVA. Weakness. Comparison: September 03, 2018. Portable chest unchanged again with minimal bibasilar fibrosis/scarring and right base calcified granuloma. Remaining heart and lungs unremarkable. No new/acute findings.
[2018-10-18 17:28] LABS: Amphetamine,Urine NEGATIVE (NEGATIVE); Barbiturate,Urine NEGATIVE (NEGATIVE); Benzodiazepine,Urine NEGATIVE (NEGATIVE); Cocaine,Urine NEGATIVE (NEGATIVE); Methadone,Urine NEGATIVE (NEGATIVE); Opiate,Urine NEGATIVE (NEGATIVE); PCP,Urine NEGATIVE (NEGATIVE); THC,Urine NEGATIVE (NEGATIVE)
[2018-10-18 17:31] LABS: Appearance CLEAR (CLEAR); Bacteria RARE /HPF (NEGATIVE); Bilirubin NEGATIVE (NEGATIVE); Blood NEGATIVE Ery/ul (0-5); Epithelial Cells RARE /HPF (FEW); Glucose NEGATIVE (NEGATIVE); Ketones NEGATIVE (NEGATIVE); Leukocyte Esterase MODERATE (NEGATIVE); Nitrite NEGATIVE (NEGATIVE); Protein,Urine Dip NEGATIVE (Negative); Specific Gravity 1.009 (1.005-1.025); Urobilinogen NEGATIVE mg/dL (0-1)
--- NOTE | 2018-10-18 18:25 | ERPHSYRPT ---
- History of Present Illness Time Seen by Provider: 10/18/18 16:50 Source: patient, EMS Exam Limitations: clinical condition Patient Subjective Stated Complaint: FOUND AT HOME BY SON UNABLE TO WALK AND LEFT SIDE MOUTH DROOP. LAST SEEN NORMAL YESTERDAY AROUND 1600. PATIENT HAS HX OF DEMENTIA BUT IS AMBULATORY WITH WALKER AND ASSISTANCE AND LIVES WITH SON. Triage Nursing Assessment: ON ARRIVAL PATIENT'S SPEECH CLEAR, ALERT, ORIENTED TO NAME AND PLACE ONLY. SLIGHT LEFT MOUTH DROOP NOTED. RIGHT HAND CLINICAL CYTOGENETICIST SCIENTIST IS SLIGHTLY WEAK. GOOD MOVEMENT AND STRENGTH OF LOWER EXTREMITIES. Physician History: 83 y/o white male with known h/o alzheimers dementia and chronic anemia. presents with worsening weakness and pt fell yesterday afternoon. last time pt at baseline was 1600 yesterday. pts family states he is not eating or drinking well over last several day. pt denies soa, denies abd pain, denies cp. pt is DNR. Timing/Duration: day(s) (several ) Severity: moderate Character of Deficits: other (worsening weakness) Deficits: cannot stand, cannot walk, decrease ability to stand, decrease ability to walk, unable to stand Baseline/Normal Cognition: alert but confused Current Cognition: alert but confused Baseline Gait: unable to walk Associated Symptoms: confusion, weakness, trouble walking Allergies/Adverse Reactions: strawberry Allergy (Verified 10/18/18 17:09) Home Medications: Furosemide [Lasix] 40 mg PO BID 07/03/17 [History] Ferrous Sulfate 325 mg PO TID 09/03/18 [History] Levothyroxine Sodium [Synthroid] 50 mcg PO DAILY 09/03/18 [History] Loratadine 10 mg [Claritin 10 mg] 10 mg PO DAILY 09/03/18 [History] Metformin HCl 500 mg [Glucophage 500 MG] 500 mg PO BIDWM 09/03/18 [History ] Quetiapine Fumarate [Seroquel] 50 mg PO BID 09/03/18 [History] Sitagliptin Phosphate 50 MG [Januvia 50 MG] 100 mg PO DAILY 09/03/18 [ History] Haloperidol 2.5 mg PO HS 10/06/18 [History] Potassium Chloride 8 meq PO DAILY 10/06/18 [History] Smz/Tmp Ds Tablet [Bactrim Ds Tablet] 1 ea PO BID 10/18/18 [History] Hx Tetanus, Diphtheria Vaccination/Date Given: Yes Hx Influenza Vaccination/Date Given: No Hx Pneumococcal Vaccination/Date Given: Yes - Review of Systems Constitutional: Weakness Eyes: No Symptoms Ears, Nose, & Throat: No Symptoms Respiratory: No Symptoms Cardiac: No Symptoms Abdominal/Gastrointestinal: No Symptoms Genitourinary Symptoms: No Symptoms Musculoskeletal: No Symptoms Skin: No Symptoms Neurological: Other (worsening weakness.) Psychological: No Symptoms Endocrine: No Symptoms Hematologic/Lymphatic: Anemia Immunological/Allergic: No Symptoms All Other Systems: Reviewed and Negative - Past Medical History Pertinent Past Medical History: Yes Neurological History: Alzheimer's Disease, Dementia ENT History: No Pertinent History Cardiac History: Congestive Heart Failure, Other Respiratory History: No Pertinent History Endocrine Medical History: Diabetes Type II, Hypothyroidism Musculoskeletal History: Arthritis GI Medical History: No Pertinent History History: No Pertinent History Psycho-Social History: No Pertinent History Male Reproductive Disorders: No Pertinent History Other Medical History: MITRAL VALVE PROLAPSE, skin cancer - Past Surgical History Past Surgical History: Yes Neuro Surgical History: No Pertinent History Cardiac: No Pertinent History Respiratory: No Pertinent History Gastrointestinal: No Pertinent History Genitourinary: No Pertinent History Musculoskeletal: Orthopedic Surgery Male Surgical History: No Pertinent History Other Surgical History: neck was broken he has rods in his neck. - Social History Smoking Status: Never smoker Exposure to second hand smoke: No Drug Use: none Patient Lives Alone: No - Nursing Vital Signs Nursing Vital Signs: Initial Vital Signs Temperature 97.9 F 10/18/18 16:45 Pulse Rate 85 10/18/18 16:45 Respiratory Rate 16 10/18/18 16:45 Blood Pressure 134/61 10/18/18 16:45 O2 Sat by Pulse Oximetry 98 10/18/18 16:45 Pain Scale Pain Intensity 0 - [place] Coma Scale Best Eye Response ([place]): (4) open spontaneously Best Verbal Response ([place]): (3) inappropriate words Best Motor Response ([place]): (6) obeys commands Naomie Total: 13 - Physical Exam General Appearance: no apparent distress, lethargy (mild) Eye Exam: bilateral eye: normal inspection, PERRL, EOMI Ears, Nose, Throat Exam: normal ENT inspection, dry mucous membranes Neck Exam: normal inspection, non-tender, supple, full range of motion Respiratory: normal breath sounds, lungs clear, airway intact, No chest tenderness, No respiratory distress Cardiovascular: regular rate/rhythm, normal heart sounds, normal peripheral pulses Gastrointestinal: soft, normal bowel sounds, No tenderness Rectal Exam: not done Back Exam: normal inspection, normal range of motion, No CVA tenderness, No vertebral tenderness Extremity Exam: normal inspection, normal range of motion, pelvis stable Mental Status: depressed affect, disoriented to place, disoriented to time, lethargy (mild. rousable) girl friday Exam: tongue midline Motor/Sensory: weak motor strength RUE, weak motor strength LUE, weak motor strength RLE, weak motor strength LLE Skin Exam: warm, dry, pale SpO2 Interpretation: normal SpO2: 98 O2 Delivery: Room Air - Course Nursing assessment & vital signs reviewed: Yes EKG Interpreted by Me: RATE (82), Sinus Rhythm, NORMAL AXIS, NORMAL INTERVALS, NORMAL QRS, Non-specific ST Changes, Other (no changes when compared to ekg dated 09/03/18) Ordered Tests: Active Orders 24 hr Category Date Time Status Mobility Developer STAT Care 10/18/18 16:11 Active EKG-ER Only STAT Care 10/18/18 16:10 Active IV Insertion STAT Care 10/18/18 16:10 Active NPO (ED) STAT Care 10/18/18 16:10 Active CHEST 1 VIEW (PORTABLE) Stat Exams 10/18/18 16:11 Completed HEAD WITHOUT CONTRAST [CT] Stat Exams 10/18/18 16:11 Completed BMP Stat Lab 10/18/18 16:20 Completed CBC W DIFF Stat Lab 10/18/18 16:20 Completed CULTURE,URINE Stat Lab 10/18/18 17:02 Received PTT Stat Lab 10/18/18 16:20 Completed TROPONIN Q3H Lab 10/18/18 16:20 Completed TROPONIN Q3H Lab 10/18/18 19:15 Ordered TROPONIN Q3H Lab 10/18/18 22:15 Ordered TROPONIN Q3H Lab 10/19/18 01:15 Ordered TROPONIN Q3H Lab 10/19/18 04:15 Ordered UA W/RFX UR CULTURE Stat Lab 10/18/18 17:02 Completed Urine Triage Profile Stat Lab 10/18/18 17:02 Completed Transfer Order Routine Transfer 10/18/18 Ordered Lab/Rad Data: Laboratory Result Diagrams 10/18/18 16:20 10/18/18 16:20 Laboratory Results 10/18/18 10/18/18 10/18/18 Range/Units 17:02 17:02 16:20 WBC (4.0-10.5) K/mm3 RBC (4.1-5.6) M/mm3 Hgb (12.5-18.0) gm/dl Hct (42-50) % MCV (78-100) fl MCH (26-32) pg MCHC (32-36) g/dl RDW (11.5-14.0) % Plt Count (150-450) K/mm3 MPV (6-9.5) fl Gran % (36.0-66.0) % Eos # (Auto) (0-0.5) Absolute Lymphs (auto) (1.0-4.6) Absolute Monos (auto) (0.0-1.3) Lymphocytes % (24.0-44.0) % Monocytes % (0.0-12.0) % Eosinophils % (0.00-5.0) % Basophils % (0.0-0.4) % Absolute Granulocytes (1.4-6.9) Basophils # (0-0.4) APTT (24.1-36.1) SECONDS Sodium (137-145) mmol/L Potassium (3.5-5.1) mmol/L Chloride (98-107) mmol/L Carbon Dioxide (22-30) mmol/L Anion Gap (5-15) MEQ/L BUN (9-20) mg/dL Creatinine (0.66-1.25) mg/dL Estimated GFR ML/MIN Glucose (74-106) mg/dL Calcium (8.4-10.2) mg/dL Troponin I 0.014 (0.000-0.034) ng/mL Urine Color YELLOW (YELLOW) Urine Appearance CLEAR (CLEAR) Urine pH 5.0 (5-6) Ur Specific [place] 1.009 (1.005-1.025) Urine Protein NEGATIVE (Negative) Urine Ketones NEGATIVE (NEGATIVE) Urine Blood NEGATIVE (0-5) Ralph/ul Urine Nitrite NEGATIVE (NEGATIVE) Urine Bilirubin NEGATIVE (NEGATIVE) Urine Urobilinogen NEGATIVE (0-1) mg/dL Ur Leukocyte Esterase MODERATE (NEGATIVE) Urine WBC (Auto) 6-10 (0-5) /HPF Urine RBC (Auto) 3-5 (0-2) /HPF U Hyaline Cast (Auto) 3-5 (0-2) /LPF U Epithel Cells (Auto) RARE (FEW) /HPF Urine Bacteria (Auto) RARE (NEGATIVE) /HPF Urine Culture Reflexed YES (NO) Urine Glucose NEGATIVE (NEGATIVE) mg/dL Urine Opiates Level NEGATIVE (NEGATIVE) Ur Methadone NEGATIVE (NEGATIVE) Urine Barbiturates NEGATIVE (NEGATIVE) Ur Phencyclidine (PCP) NEGATIVE (NEGATIVE) Urine Amphetamine NEGATIVE (NEGATIVE) U Benzodiazepine Level NEGATIVE (NEGATIVE) Urine Cocaine NEGATIVE (NEGATIVE) Urine Marijuana (THC) NEGATIVE (NEGATIVE) 10/18/18 10/18/18 10/18/18 Range/Units 16:20 16:20 16:20 WBC 5.9 (4.0-10.5) K/mm3 RBC 3.32 L (4.1-5.6) M/mm3 Hgb 8.9 L (12.5-18.0) gm/dl Hct 27.4 L (42-50) % MCV 82.5 (78-100) fl MCH 26.8 (26-32) pg MCHC 32.5 (32-36) g/dl RDW 19.5 H (11.5-14.0) % Plt Count 303 (150-450) K/mm3 MPV 8.9 (6-9.5) fl Gran % 70.1 H (36.0-66.0) % Eos # (Auto) 0.06 (0-0.5) Absolute Lymphs (auto) 1.13 (1.0-4.6) Absolute Monos (auto) 0.54 (0.0-1.3) Lymphocytes % 19.2 L (24.0-44.0) % Monocytes % 9.2 (0.0-12.0) % Eosinophils % 1.0 (0.00-5.0) % Basophils % 0.5 (0.0-0.4) % Absolute Granulocytes 4.14 (1.4-6.9) Basophils # 0.03 (0-0.4) APTT 28.2 (24.1-36.1) SECONDS Sodium 138 (137-145) mmol/L Potassium 4.7 (3.5-5.1) mmol/L Chloride 98 (98-107) mmol/L Carbon Dioxide 25 (22-30) mmol/L Anion Gap 19.6 H (5-15) MEQ/L BUN 51 H (9-20) mg/dL Creatinine 3.49 H (0.66-1.25) mg/dL Estimated GFR 17.8 ML/MIN Glucose 91 (74-106) mg/dL Calcium 8.8 (8.4-10.2) mg/dL Troponin I (0.000-0.034) ng/mL Urine Color (YELLOW) Urine Appearance (CLEAR) Urine pH (5-6) Ur Specific [place] (1.005-1.025) Urine Protein (Negative) Urine Ketones (NEGATIVE) Urine Blood (0-5) Ralph/ul Urine Nitrite (NEGATIVE) Urine Bilirubin (NEGATIVE) Urine Urobilinogen (0-1) mg/dL Ur Leukocyte Esterase (NEGATIVE) Urine WBC (Auto) (0-5) /HPF Urine RBC (Auto) (0-2) /HPF U Hyaline Cast (Auto) (0-2) /LPF U Epithel Cells (Auto) (FEW) /HPF Urine Bacteria (Auto) (NEGATIVE) /HPF Urine Culture Reflexed (NO) Urine Glucose (NEGATIVE) mg/dL Urine Opiates Level (NEGATIVE) Ur Methadone (NEGATIVE) Urine Barbiturates (NEGATIVE) Ur Phencyclidine (PCP) (NEGATIVE) Urine Amphetamine (NEGATIVE) U Benzodiazepine Level (NEGATIVE) Urine Cocaine (NEGATIVE) Urine Marijuana (THC) (NEGATIVE) - Progress Progress: unchanged, re-examined Progress Note: 10/18/18 18:28 cxr-no acute process; bibasilar fibrosis/scarring ct head-nonacute senile brain 10/18/18 18:[address] emerson. i reviewed pt hx, condition, labs, ekg and xray results with him. he accepts pt for admission Discussed with : Mau Counseled pt/family regarding: lab results, diagnosis, rad results - Departure Departure Disposition: In-patient Admission Clinical Impression: UTI (urinary tract infection), Anemia, Weakness, Failure to thrive Condition: Fair Critical Care Time: No Referrals: SPARKLE EMERSON [Primary Care Provider] -
[2018-10-18] MEDS ORDERED: ROCEPHIN 1 Gm-D5w 50 ml Bag** 1 G/50 ML IVPB IV STA (18:40)
[2018-10-18] MEDS ORDERED: FEVERALL 650 MG PR PRN (18:47)
[2018-10-18] MEDS ORDERED: ROCEPHIN 1 Gm-D5w 50 ml Bag** 1 G/50 ML IVPB IV ONE (18:56)
[2018-10-18] MEDS: Sodium Chloride 0.9% 1000 ML 1,000 ML IV SCH (19:01)
[2018-10-18] MEDS: Seroquel 25 MG PO SCH (21:39)
[2018-10-18] MEDS: Haldol 5 MG PO SCH (21:40)
[2018-10-18] MEDS ORDERED: FEOSOL 325 MG PO SCH (22:00)
[2018-10-18] MEDS ORDERED: Glucophage 500 MG PO SCH (22:00)
[2018-10-19 07:47] LABS: ALBUMIN 3.5 g/dL (3.5-5.0); BILIRUBIN,TOTAL 0.4 mg/dL (0.2-1.3); Creatinine 1 3.01 mg/dL (0.66-1.25); Potassium 4.6 mmol/L (3.5-5.1); Total Protein 7.1 g/dL (6.3-8.2)
--- NOTE | 2018-10-19 08:52 | HP ---
CHIEF COMPLAINT: Deteriorating condition, weakness, dehydration and dementia. HISTORY OF PRESENT ILLNESS: The patient is an 83 year-old white male patient who is taken care of at home by his son and [id number]. They are at the point where they can no longer care for him as he is unable to get up and help to care for himself any longer. 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 He had been receiving previous treatments but quit doing this as he no longer desires to be treated. The patient apparently got to the point where he can no longer get fluids for himself and has become dehydrated. He was found on evaluation in the emergency room to have acute renal failure. The patient also had recently been treated for cellulitis of the left lower extremity which is still minimally present. The patient also suffers from decubitus ulcer of his sacrum. PAST MEDICAL HISTORY: Significant for hypothyroid, congestive heart failure, diabetes mellitus type 2 and dementia. HOME MEDICATIONS: Lasix 40 b.i.d., iron 325 t.i.d., levothyroxine 50 mcg a day, loratadine 10 mg a day, Metformin 500 mg b.i.d., Seroquel 50 mg b.i.d., Januvia 100 mg a day, Haldol 2.5 mg at night, potassium 8 mEq a day, Bactrim DS b.i.d. ALLERGIES: NKDA. STRAWBERRY. PHYSICAL EXAMINATION: The patient is an elderly white male patient in no acute distress. His vital signs on admission to the emergency room showed his temperature 97.9F, pulse 85, respiratory rate 16, blood pressure 134/61. O2 saturation 98%. HEENT: Normocephalic, atraumatic. Pupils equal round reactive to light. Extraocular movements intact. Oropharynx is dry. NECK: Supple. CHEST: Clear. HEART: Regular rate and rhythm without murmurs, rubs or gallops. ABDOMEN: Soft. No palpable masses. EXTREMITIES: Reveal redness in the posterior portion from heel to the half way up the back of the calf on the left side. His left forearm is covered in a bandage dressing due to the squamous cell cancer which is open and chronically infected. NEUROLOGIC: The patient is unable to tell me where he is. He thought he was in [facility]. He could not tell me the date or the year. He reported Cesar as being the President. LAB DATA AND TESTS: In the emergency room revealed a white count of 5,900, hemoglobin 8.9, PLT 303,000. UA showed 6 to 10 white blood cells per high power field, bacteria rare, nitrite negative. Urine drug screen was negative. Troponin was 0.014. His sugar was 91, BUN 51, creatinine 3.49. As of approximately six weeks ago he had normal renal functions. Electrolytes are normal. His CT scan of the brain was nonacute senile brain and left maxillary sinus disease. EKG appeared to be regular sinus rhythm with no changes from previous. ASSESSMENT: A patient with: 1) Dehydration. 2) Acute renal failure nonoliguric. 3) Diabetes mellitus type 2 on Glucophage. Will have to hold Glucophage with his kidney functions until he improves hopefully with IV fluid hydration. 4) He has squamous cell skin cancer of the left arm which is not being treated presently by his wishes and now seeking group home placement for further care after discharge.
[2018-10-19] MEDS: Seroquel 25 MG PO SCH ×2 (09:13→21:25)
[2018-10-19] MEDS: SYNTHROID 50 MCG PO SCH (09:13)
[2018-10-19] MEDS ORDERED: ROCEPHIN 1 Gm-D5w 50 ml Bag** 1 G/50 ML IVPB IV SCH (10:00)
[2018-10-19] MEDS: Sodium Chloride 0.9% 1000 ML 1,000 ML IV SCH (15:10)
[2018-10-19] MEDS: Haldol 5 MG PO SCH (21:24)
[2018-10-19] MEDS: ROCEPHIN 1 Gm-D5w 50 ml Bag** 1 G/50 ML IVPB IV SCH (21:25)
[2018-10-20] MEDS: Sodium Chloride 0.9% 1000 ML 1,000 ML IV SCH ×3 (01:57→21:17)
[2018-10-20] MEDS: SYNTHROID 50 MCG PO SCH (09:07)
[2018-10-20] MEDS: Seroquel 25 MG PO SCH ×2 (09:07→21:37)
--- NOTE | 2018-10-20 09:52 | PCM.NOTE ---
Date and Time: 10/20/1851 Subjective Assessment: patient reports he thinks his strength is improving, he denies any complaints currently. he is seen sitting in a bela-chair and is pleasant this morning Objective Exam General Appearance: no apparent distress, alert Respiratory Exam: normal breath sounds, lungs clear, No respiratory distress Cardiovascular Exam: regular rate/rhythm, normal heart sounds Gastrointestinal/Abdomen Exam: soft, No tenderness, No mass Extremity Exam: normal inspection, normal range of motion OBJECTIVE DATA Vital Signs: Vital Signs - 24 hr Temp Pulse Resp BP Pulse Ox 10/20/18 06:59 97.7 F 76 20 147/66 96 10/20/18 04:00 98.6 F 86 18 132/82 96 10/20/18 00:00 98.6 F 82 18 124/58 95 10/19/18 19:44 98.3 F 86 20 128/58 95 10/19/18 16:00 98 F 82 20 113/53 100 10/19/18 12:00 97.9 F 87 20 131/97 Pain Assessment - Last Documented Pain Intensity 0 Pain Scale Used 0-10 Pain Scale Intake and Output: Intake & Output 10/17/18 10/18/18 10/19/18 10/20/18 11:59 11:59 11:59 11:59 Intake Total 1141 3241 Output Total 550 2450 Balance 591 791 Weight 74.3 kg 74.6 kg Radiology Exams: Radiology Procedures Category Date Time Status CHEST 1 VIEW (PORTABLE) Stat Exams 10/18/18 16:11 Completed HEAD WITHOUT CONTRAST [CT] Stat Exams 10/18/18 16:11 Completed Multi-Disciplinary Progress Notes: Multi-Disciplinary Progress Notes 10/19/18 10:30 (created 10/19/18 11:54) Case Management Note by Sushila Mcgill REFERRAL CALLED AND FAXED TO [facility]. DAISY PAPERWORK QUEUED FOR REVIEW AT THIS TIME. Initialized on 10/19/18 11:54 - END OF NOTE Assessment/Plan (1) UTI (urinary tract infection) Current Visit: Yes Status: Acute Assessment & Plan: on rocephin, has gram negative bug pending ID in urine culture. continue current management. plan to discharge to [facility] for therapy at end of hospital course Code(s): N39.0 - URINARY TRACT INFECTION, SITE NOT SPECIFIED (2) Failure to thrive Current Visit: Yes Status: Acute Code(s): JXL3141 - (3) Weakness Current Visit: Yes Status: Acute Code(s): R53.1 - WEAKNESS
[2018-10-20] MEDS: ROCEPHIN 1 Gm-D5w 50 ml Bag** 1 G/50 ML IVPB IV SCH (21:36)
[2018-10-20] MEDS: Haldol 5 MG PO SCH (21:37)
[2018-10-21 06:17] LABS: BASOPHIL % 0.4 % (0.0-0.4); Basophil (Absolute #) 0.02 (0-0.4); Eosinophil % 2.5 % (0.00-5.0); Eosinophil (Absolute #) 0.14 (0-0.5); Granulocyte Absolute (ANC) 3.81 (1.4-6.9); Granulocytes % 66.9 % (36.0-66.0); Hematocrit 29.1 % (42-50); Lymphocyte (Absolute #) 1.22 (1.0-4.6); Lymphocytes % 21.4 % (24.0-44.0); Mean Cell Volume 84.6 fl (78-100); Mean Corpuscular Hgb Concent. 30.9 g/dl (32-36); Mean Platelet Volume 9.2 fl (6-9.5); Monocytes % 8.8 % (0.0-12.0); Platelet Count 313 K/mm3 (150-450); Red Blood Count 3.44 M/mm3 (4.1-5.6); Red Cell Distribution Width 18.8 % (11.5-14.0); White Blood Count 5.7 K/mm3 (4.0-10.5)
[2018-10-21 06:23] LABS: Mean Corpuscular Hemoglobin 26.1 pg (26-32)
[2018-10-21 06:24] LABS: ANION GAP 13.8 MEQ/L (5-15); BLOOD UREA NITROGEN 25 mg/dL (9-20); CHLORIDE 105 mmol/L (98-107); Carbon Dioxide 24 mmol/L (22-30); Glucose 143 mg/dL (74-106); Potassium 4.3 mmol/L (3.5-5.1); SODIUM 139 mmol/L (137-145)
[2018-10-21 07:31] VITALS: BP 150/80; PULSE 91; O2SAT 96
--- NOTE | 2018-10-21 08:59 | PCM.DS ---
Discharge Summary Date of Admission: 10/18/18 18:45 Admitting Physician: SPARKLE ZHOU Primary Care Provider: SPARKLE ZHOU Allergies Allergies strawberry Allergy (Verified 10/18/18 17:09) Hospital Summary - Hospital Course Hospital Course: patient was admitted with weakness, altered mental status and UTI. found to have pseudomonas in culture, switced to cipro po today due to lack of IV access (patient pulled it out overnight). plan to discharge to [facility] for rehab today on po cipro x 10 days - Vitals & Intake/Output Vital Signs: Vital Signs Temperature 97.8 F 10/21/18 07:30 Pulse Rate 91 H 10/21/18 07:30 Respiratory Rate 20 10/21/18 07:30 Blood Pressure 150/80 10/21/18 07:30 O2 Sat by Pulse Oximetry 96 10/21/18 07:30 Intake & Output: Intake & Output 10/18/18 10/19/18 10/20/18 10/21/18 11:59 11:59 11:59 11:59 Intake Total 1141 3241 1220 Output Total 550 2450 2525 Balance 591 791 -1305 Weight 74.3 kg 74.6 kg 75.2 kg - Lab Result Diagrams: 10/21/18 05:55 10/21/18 05:55 Lab Results-Last 24 Hrs: Lab Results-Last 24 Hours 10/21/18 10/21/18 Range/Units 05:55 05:55 WBC 5.7 (4.0-10.5) K/mm3 RBC 3.44 L (4.1-5.6) M/mm3 Hgb 9.0 L (12.5-18.0) gm/dl Hct 29.1 L (42-50) % MCV 84.6 (78-100) fl MCH 26.1 (26-32) pg MCHC 30.9 L (32-36) g/dl RDW 18.8 H (11.5-14.0) % Plt Count 313 (150-450) K/mm3 MPV 9.2 (6-9.5) fl Gran % 66.9 H (36.0-66.0) % Eos # (Auto) 0.14 (0-0.5) Absolute Lymphs (auto) 1.22 (1.0-4.6) Absolute Monos (auto) 0.50 (0.0-1.3) Lymphocytes % 21.4 L (24.0-44.0) % Monocytes % 8.8 (0.0-12.0) % Eosinophils % 2.5 (0.00-5.0) % Basophils % 0.4 (0.0-0.4) % Absolute Granulocytes 3.81 (1.4-6.9) Basophils # 0.02 (0-0.4) Sodium 139 (137-145) mmol/L Potassium 4.3 (3.5-5.1) mmol/L Chloride 105 (98-107) mmol/L Carbon Dioxide 24 (22-30) mmol/L Anion Gap 13.8 (5-15) MEQ/L BUN 25 H (9-20) mg/dL Creatinine 1.20 (0.66-1.25) mg/dL Estimated GFR > 60.0 ML/MIN Glucose 143 H (74-106) mg/dL Calcium 9.0 (8.4-10.2) mg/dL Micro Results-Entire Visit: Microbiology 10/18/18 17:02 Urine Culture - Final Urine, Void Pseudomonas Aeruginosa - Procedures and Test Procedures and Tests throughout Hospitalization: Therapy Orders & Screens 10/19/18 07:29 OT Eval and Treat ( Order) Comment: Consulting Provider: Physician Instructions: Reason For Exam: Diagnosis: UTI, Weakness, Anemia, Failure to Thrive, PT Eval & Treat ( Order) ROUTINE Reason for Eval:: weakness, facial droop Diagnosis: UTI, Weakness, Anemia, Failure to Thrive, 10/19/18 08:00 OT Screen per Nursing Assess Comment: Protocol Order Physician Instructions: Greater than 3 points order OT Admission Screening Reason For Exam: Triggered on Admission Diagnosis: UTI, Weakness, Anemia, Failure to Thrive, Open Wound/Cellutlitis/Pressure Ulcers: Yes Acute Fx/ORIF/Change in wt bearing status: Yes Severe MUSCULOSKELETAL pain: No ADL Dysfunction: Yes Acute CVA w/Hemiparesis/Hemiplegia: No Decreased Functional Mobility/Strength: Yes Sprain/Strain: No Acute Post-op Mobility Dysfunction: No Total Points: 14 PT Screen per Nursing Assess ONCE Comment: Protocol Order Physician Instructions: Greater than 3 points order PT Admission Screenin Reason For Exam: Triggered on Admission Diagnosis: UTI, Weakness, Anemia, Failure to Thrive, Open Wound/Cellutlitis/Pressure Ulcers: Yes Acute Fx/ORIF/Change in wt bearing status: Yes Severe MUSCULOSKELETAL pain: No ADL Dysfunction: Yes Acute CVA w/Hemiparesis/Hemiplegia: No Decreased Functional Mobility/Strength: Yes Sprain/Strain: No Acute Post-op Mobility Dysfunction: No Total Points: 14 Discharge Exam General Appearance: no apparent distress Neurologic Exam: alert Skin Exam: normal color, warm, dry Respiratory Exam: normal breath sounds, lungs clear, No respiratory distress Cardiovascular Exam: regular rate/rhythm, normal heart sounds Gastrointestinal/Abdomen Exam: soft, No tenderness, No mass Final Diagnosis/Problem List - Final Discharge Diagnosis/Problem (1) UTI (urinary tract infection) Current Visit: Yes Status: Acute Assessment & Plan: pseudomonas, cipro ordered Code(s): N39.0 - URINARY TRACT INFECTION, SITE NOT SPECIFIED (2) Failure to thrive Current Visit: Yes Status: Acute Code(s): KQG1123 - (3) Weakness Current Visit: Yes Status: Acute Code(s): R53.1 - WEAKNESS - Discharge Disposition: DC TO [facility] Condition: Fair Prescriptions: New Ciprofloxacin HCl [Cipro] 250 mg PO BID #14 tablet Continue Furosemide [Lasix] 40 mg PO BID Metformin HCl 500 mg [Glucophage 500 MG] 500 mg PO BIDWM Ferrous Sulfate 325 mg PO TID Levothyroxine Sodium [Synthroid] 50 mcg PO DAILY Loratadine 10 mg [Claritin 10 mg] 10 mg PO DAILY Quetiapine Fumarate [Seroquel] 50 mg PO BID Sitagliptin Phosphate 50 MG [Januvia 50 MG] 100 mg PO DAILY Potassium Chloride 8 meq PO DAILY Haloperidol 2.5 mg PO HS Discontinued Cephalexin Mh 500 mg [Keflex 500 mg] 500 mg PO TID 7 Days #21 capsule Smz/Tmp Ds Tablet [Bactrim Ds Tablet] 1 ea PO BID
[2018-10-21] MEDS ORDERED: Merrem 1 GM 1 G in Sodium Chloride 100ML MINI-BAG PLUS 100 ML IV SCH (09:00)
[2018-10-21] MEDS ORDERED: Cipro 500 MG PO SCH (09:30)
[2018-10-21] MEDS ORDERED: Levofloxacin 250MG Tablet PO SCH (10:00)
== END 2018-10-21 09:45 | DRG 690 ==
LOC: ED 16:08 → MED SURG 18:45
PROVIDERS: ADMIT Family Medicine; ATTEND Family Medicine
DX: N39.0 Urinary tract infection, site not specified (principal); N17.9 Acute kidney failure, unspecified; L03.116 Cellulitis of left lower limb; B96.5 Pseudomonas (aeruginosa) (mallei) (pseudomallei) as the cause of diseases classified elsewhere; D64.9 Anemia, unspecified; E86.0 Dehydration; R53.1 Weakness; C44.629 Squamous cell carcinoma of skin of left upper limb, including shoulder; R62.7 Adult failure to thrive; E11.9 Type 2 diabetes mellitus without complications; E03.9 Hypothyroidism, unspecified; L89.159 Pressure ulcer of sacral region, unspecified stage; R41.82 Altered mental status, unspecified; Z79.899 Other long term (current) drug therapy; F03.90 Unspecified dementia, unspecified severity, without behavioral disturbance, psychotic disturbance, mood disturbance, and anxiety
CPT/HCPCS: 36415; 70450; 71045; 80048; 80053; 80307; 81001; 84484; 85025; 85730; 87077; 87086; 87186; 93005; 93041; 99285; J0696; A9270-GY